=== PATIENT | male | born 1965 | race Hispanic/Latino ===

== ENCOUNTER 2022-07-30 17:02 | Emergency (ER) | payer OTHER ==
[~2022-07-30] VITALS: Ht 175.3 cm; Wt 108.9 kg
[2022-07-30 17:54] LABS: APPEARANCE,URINE CLEAR (CLEAR); BILIRUBIN,URINE NEGATIVE (NEGATIVE); COLOR,URINE LIGHT-YELLOW (YELLOW); GLUCOSE, URINE (UA) NEGATIVE (NEGATIVE); KETONES,URINE NEGATIVE (NEGATIVE); LEUKOCYTE ESTERASE ,URINE NEGATIVE Leu/uL (NEGATIVE); NITRATE,URINE NEGATIVE (NEGATIVE); OCCULT BLOOD,URINE SMALL (NEGATIVE); PH,URINE 5.5 (5.0-8.0); PROTEIN,URINE 100 mg/dL (NEGATIVE); UROBILINOGEN,URINE 0.2 mg/dL (0.2-1.0)
[2022-07-30 17:56] LABS: BACTERIA,URINE RARE /HPF (None Seen); MUCUS,URINE RARE LPF (None Seen); SQUAMOUS EPITHELIAL CELL,UR RARE /HPF (0-2); WBC,URINE 0-1 /HPF (0-1)
[2022-07-30 18:08] LABS: BASOPHILS % (AUTO) 0.3 % (0.0-5.0); EOSINOPHILS % (AUTO) 1.2 % (0.0-8.0); HEMATOCRIT 46.4 % (42-54); LYMPHOCYTES % (AUTO) 31.5 % (21.0-51.0); MEAN CORPUSCULAR HEMOGLOBIN 29.3 pg (27.0-33.0); MEAN CORPUSCULAR HGB CONC 35.3 g/dL (32.0-36.0); MONOCYTES % (AUTO) 8.4 % (3.0-13.0); NEUTROPHILS % (AUTO) 58.2 % (40.0-77.0); PLATELET COUNT (AUTO) 226 K/uL (130-400); RED BLOOD CELL COUNT(AUTO) 5.59 MIL/uL (4.50-6.20); RED CELL DISTRIBUTION WIDTH 12.4 % (11.0-15.5); WHITE BLOOD COUNT (AUTO) 10.9 K/uL (4.8-10.8)
[2022-07-30 18:28] LABS: ALBUMIN 4.1 g/dL (3.5-5.0); CREATININE 0.9 mg/dL (0.5-1.5); POTASSIUM 3.7 mmol/L (3.5-5.1)
[2022-07-30 21:29] VITALS: BP 139/89
[2022-07-30] MEDS ORDERED: BISA-189 PO (21:46)
== END 2022-07-30 21:56 | disposition home or self-care (01) ==
LOC: EDH 17:02
DX: R10.32 Left lower quadrant pain (principal); E11.9 Type 2 diabetes mellitus without complications; E78.00 Pure hypercholesterolemia, unspecified; I10 Essential (primary) hypertension; Z79.899 Other long term (current) drug therapy
CPT/HCPCS: 36415; 74176; 80053; 81001; 85025

== ENCOUNTER 2024-09-10 21:04 | Inpatient (IN) | payer BC, OTHER ==
[~2024-09-10] VITALS: Ht 177.8 cm; Wt 102.1 kg
[~2024-09-10 21:04] MED LIST: BISA-189 PO
--- NOTE | 2024-09-10 21:25 | ERN ---
General Chief Complaint: Blood in Urine: Stated Complaint: C/O BLOOD IN URINE, LOWER BACK PAIN, WEAKNESS Time Seen by : 21:09 History of Present Illness Initial Comments Patient comes in for evaluation. He is a truck dock material mover. Patient reports she has chronic hematuria but started having some low back pain and dysuria and nausea starting last night. He does have diabetes. He is on a simvastatin as well as Ozempic for the last year and metformin. Denies any kidney disease. On five this morning started feeling feverish and weak and called the ambulance. They took him to a hospital about 3 hours away. He was diagnosed with urinary tract infection and cystitis. They recommended admission however he was more than 3 hours from home. His came and got him. He left there around 10:00 a.m.. He was given 500 mg of Levaquin as well as 1 g Rocephin prior to discharge. This is around 6:00 a.m.. He was also discharged with a prescription for Augmentin, Flagyl, Levaquin. He took all three of these this evening around 5:00 p.m. along with a dose of Tylenol. He started having fevers and feeling weak again tonight which is why he presents. They did do a cardiac workup with cardiac enzymes as well as chest x-ray and COVID flu RSV swabs which she believes are negative. He is not sure of the actual results of the test but states that he was told that he had a UTI and cystitis. His discharge paperwork as here and lists the test performed although results are not available. Allergies: Coded Allergies: No Known Allergies (Unverified Allergy, Unknown, 09/10/24) Home Meds Active Scripts Bisacodyl (Dulcolax 5Mg Tab) 5 Mg Tablet., 5 MG PO BID for 2 Days, #4 TAB Prov:LILI PAK MD 07/30/22 Past Medical History Past Medical History: Diabetes-Type II, High Cholesterol, Hypertension Past Surgical History: None ROS Dictation Ten systems reviewed and negative except as noted in HPI Physical Exam Physical Exam Dictation GEN: non toxic, NAD HEENT: atrumatic, PERRL, EOMI, conjunctivae normal NECK: Soft supple nontender Heart RRR, no murmurs Chest: No deformity Lungs: Lungs clear to auscultation Ab: Soft nondistended nontender Back: No midline step-offs. No gross deformity. No CVA tenderness. : m/s: Moving all four extremities. No gross deformity Neuro: CN 2-12 intact. Moving all four extremities. Psych: Cooperative IVF Sepsis Management IVF Sepsis Management BMI >30kg/m2?: Yes Results Laboratory and Microbiology Lab and Micro Result Laboratory Tests Test 09/10/24 21:27 09/10/24 21:42 White Blood Count 22.7 K/uL (4.8-10.8) H Red Blood Count 4.99 MIL/uL (4.50-6.20) Hemoglobin 14.8 g/dL (14.0-18.0) Hematocrit 43.1 % (42-54) Mean Corpuscular Volume 86.4 fL (79-99) Mean Corpuscular Hemoglobin 29.7 pg (27.0-33.0) Mean Corpuscular Hemoglobin Concent 34.3 g/dL (32.0-36.0) Red Cell Distribution Width 12.7 % (11.0-15.5) Platelet Count 209 K/uL (130-400) Mean Platelet Volume 9.5 fL (7.5-10.5) Immature Granulocyte % (Auto) 0.8 % (0-1) Neutrophils (%) (Auto) 81.3 % (40.0-77.0) H Lymphocytes (%) (Auto) 9.6 % (21.0-51.0) L Monocytes (%) (Auto) 8.1 % (3.0-13.0) Eosinophils (%) (Auto) 0.0 % (0.0-8.0) Basophils (%) (Auto) 0.2 % (0.0-5.0) Neutrophils # (Auto) 18.5 K/uL (1.8-7.7) H Lymphocytes # (Auto) 2.2 K/uL (1.0-4.8) Monocytes # (Auto) 1.8 K/uL (0.1-1.0) H Eosinophils # (Auto) 0.01 K/uL (0.00-0.70) Basophils # (Auto) 0.04 K/uL (0.00-0.20) Absolute Immature Granulocyte (auto 0.18 K/uL (0-1) Nucleated Red Blood Cells 0.0 % (0.0-0.19) White Cell Morphology Comment See comments Sodium Level 136 mmol/L (136-145) Potassium Level 3.9 mmol/L (3.5-5.1) Chloride Level 102 mmol/L (101-111) Carbon Dioxide Level 25 mmol/L (21-32) Blood Urea Nitrogen 15 mg/dL (7-18) Creatinine 1.2 mg/dL (0.5-1.3) Glomerular Filtration Rate Calc 71 mL/min (>90) Random Glucose 143 mg/dL (70-105) H Lactic Acid Level 1.5 mmol/L (0.8-2.5) Total Calcium 8.6 mg/dL (8.5-10.1) Total Bilirubin 0.8 mg/dL (0.2-1.0) Aspartate Amino Transf (AST/SGOT) 13 U/L (10-37) Alanine Aminotransferase (ALT/SGPT) 33 U/L (12-78) Alkaline Phosphatase 68 U/L (50-136) Troponin I High Sensitivity 6 ng/L (4-75) Total Protein 7.4 g/dL (6.0-8.3) Albumin 3.5 g/dL (3.5-5.0) Procalcitonin 0.16 ng/mL (0.05-0.5) Urine Color YELLOW (YELLOW) Urine Appearance CLOUDY (CLEAR) H Urine pH 5.5 (5.0-8.0) Urine Specific [place] 1.026 (1.001-1.031) Urine Protein 100 mg/dL (NEGATIVE) H Urine Glucose (UA) 50 mg/dL (NEGATIVE) H Urine Ketones 10 mg/dL (NEGATIVE) H Urine Occult Blood MODERATE (NEGATIVE) H Urine Nitrate NEGATIVE (NEGATIVE) Urine Bilirubin NEGATIVE mg/dL (NEGATIVE) Urine Urobilinogen 0.2 mg/dL (0.2-1.0) Urine Leukocyte Esterase 500 Krystal/uL (NEGATIVE) H Urine RBC 11-25 /HPF (0-1) H Urine WBC TNTC /HPF (0-1) H Urine Squamous Epithelial Cells RARE /HPF (0-2) Urine Bacteria None /HPF (None Seen) Labs Reviewed?: Yes EKG/XRAY/US/CT/MRI EKG Comment Sinus rhythm 91 NM of 157 QRS of 95 QTC of 435 left axis deviation left anterior fascicular block. QRS complexes are narrow. STT wave complexes essentially unremarkable. Interpretation abnormal. CT Scan Comment [facility] [address] [place], [place] [id number] IMAGING REPORT Signed PATIENT: PASCALE HESS JR MR#: [id number] : 1965 SEX: M AGE: 58 LOCATION: [facility] ORDER 35 STATUS: REG ER REPORT#: [id number] SERVICE 34 REASON: ABD PAIN ORDERING PHYSICIAN: BRAYAN PACHECO MD PROCEDURE: ABD PEL W - CT ABDOMEN/PELVIS W/CONTRAST CT ABDOMEN/PELVIS W/CONTRAST HISTORY: Abdominal pain COMPARISON: None TECHNIQUE: Multiple sequential axial images of the abdomen and pelvis were obtained from the dome of the diaphragm through symphysis pubis. Patient was given 75 cc of Omnipaque through intravenous route. Oral contrast was not given. FINDINGS: No pleural effusion is seen bilaterally. There is no evidence of parenchymal disease or pulmonary nodule of the visualized lower lungs. Degenerative changes of the thoracolumbar spine are present. The heart is not enlarged. Liver measures 19 cm. Small hiatal hernia is seen. The liver, spleen, adrenal glands and pancreas are unremarkable. There is no evidence of hydronephrosis bilaterally. No evidence of renal stone is seen. Fecal material is seen in the colon. There are normal size retroperitoneal and mesenteric lymph nodes. No ascites is seen. No CT evidence of acute appendicitis is seen. Pelvic sidewalls are symmetric bilaterally. Bladder is poorly distended with apparent wall thickening. IMPRESSION: 1. No acute findings. CT was performed with one or more following dose reduction techniques: automated exposure control, adjustment of the mA and kv according to patient's size, or use of a iterative reconstruction technique. DICTATED BY: ELYSE MERCHANT MD DATE: 09/10/242299 ELECTRONICALLY SIGNED BY: ELYSE MERCHANT MD DATE: 09/10/242307 [facility] When a sounds like patient has urinary tract infection. He was given dose of Rocephin and Levaquin at outside ED this morning. He then took 750 mg of Levaquin as well as dose of Augmentin and Flagyl this evening. We will check labs here. Give fluids. Patient given sepsis fluids. Patient does have a elevated white count greater 20. Patient was given a g of Rocephin at approximately 6:00 a.m.. However given the degree of leukocytosis I am giving him another 1g here. Patient did also have two doses of Levaquin orally, with 500 mg in the morning and then 750 mg orally at home. He also had a dose of Augmentin orally. Given his degree of leukocytosis I did also perform a CT of his abdomen. No intra-abdominal abscess or perinephric abscess visualized. Patient may have some cystitis. No coronary pyelonephritis is seen. However given his labs patient will be admitted. Patient does meet sepsis criteria Lactic acid normal Discussed with hospitalist the patient is being admitted. ED Course Orders Procedure Category Date Status Time Cbc With Differential LAB 09/10/24 Complete 21:20 Comprehensive LAB 09/10/24 Complete Metabolic Panel 21:20 Lactic Acid LAB 09/10/24 Complete 21:20 Urinalysis LAB 09/10/24 Complete W/Microscopic 21:20 Procalcitonin LAB 09/10/24 Complete 21:20 Blood Cult BROOK 09/10/24 In Process 21:20 0.9%Nacl 1000ml (Ns PHA 09/10/24 In Process 1000ml) 21:30 Troponin I High LAB 09/10/24 Complete Sensitivity 21:41 12 Lead Ekg Tracing- EKG 09/10/24 Complete Technical 21:42 Culture Urine BROOK 09/10/24 In Process 21:58 Iohexol (Omnipaque) PHA 09/10/24 Complete 22:34 Ct Abdomen/Pelvis CT 09/10/24 Resulted W/Contrast 22:35 Ceftriaxone 1g Vial PHA 09/10/24 In Process (Rocephine 1g Inj) 23:30 Edm Admit Bridge Order ADM 09/10/24 Verified 23:23 Current Medications Medications (Trade) Dose Ordered Sig/Lasha Route PRN Reason Start Time Stop Time Status Last Admin Dose Admin Ceftriaxone Sodium (ROCEphine 1G INJ) 1 gm ONCE ONCE IVPB 09/10/24 23:30 09/10/24 23:31 09/10/24 23:19 Iohexol (Omnipaque) 75 ml STK-MED ONCE IV 09/10/24 22:34 09/10/24 22:34 DC Sodium Chloride 2,190 ml @ 730 mls/hr ONCE ONCE IV 09/10/24 21:30 09/11/24 00:29 09/10/24 21:48 Vital Signs Date Time Temp Pulse Resp B/P (MAP) Pulse Ox O2 Delivery O2 Flow Rate FiO2 09/10/24 21:08 99.9 96 20 124/77 97 Room Air DX & DISP Disposition: Inpatient Departure Impression: Primary Impression: UTI (urinary tract infection) Additional Impression: Sepsis Condition: Stable Referrals: CHONG TELLEZ MD (PCP) BRAYAN PACHECO MD Sep 10, 2024 21:25
[2024-09-10 21:36] LABS: BASOPHILS # (AUTO) 0.04 K/uL (0.00-0.20); BASOPHILS % (AUTO) 0.2 % (0.0-5.0); EOSINOPHILS # (AUTO) 0.01 K/uL (0.00-0.70); HEMATOCRIT 43.1 % (42-54); IMMATURE GRANULOCYTE ABSOLUTE 0.18 K/uL (0-1); LYMPHOCYTES # (AUTO) 2.2 K/uL (1.0-4.8); LYMPHOCYTES % (AUTO) 9.6 % (21.0-51.0); MEAN CORPUSCULAR HEMOGLOBIN 29.7 pg (27.0-33.0); MEAN CORPUSCULAR HGB CONC 34.3 g/dL (32.0-36.0); MEAN CORPUSCULAR VOLUME 86.4 fL (79-99); MONOCYTES # (AUTO) 1.8 K/uL (0.1-1.0); MONOCYTES % (AUTO) 8.1 % (3.0-13.0); NEUTROPHILS # (AUTO) 18.5 K/uL (1.8-7.7); NEUTROPHILS % (AUTO) 81.3 % (40.0-77.0); PLATELET COUNT (AUTO) 209 K/uL (130-400); RED BLOOD CELL COUNT(AUTO) 4.99 MIL/uL (4.50-6.20); RED CELL DISTRIBUTION WIDTH 12.7 % (11.0-15.5); WHITE BLOOD COUNT (AUTO) 22.7 K/uL (4.8-10.8)
--- NOTE | 2024-09-10 21:45 | NUR ---
PATIENT REPORTS FEVER CHILLS BACK PAIN BLOOD IN URINE ONSET TODAY. REPORTS WAS SEEN AT AN EMERGENCY DEPT IN [facility] AND WAS TO BE ADMITTED FOR UTI HEMATURIA AND CYSTITIS BUT DECIDED TO BE DISCHARGED AND BE [place]CE HE LIVES HERE
[2024-09-10] MEDS: 0.9%NACL 1000ML 2,190 ML IV ONE (21:48)
--- NOTE | 2024-09-10 21:54 | EKG ---
[facility] Test Date: 2024-09-10 Test Time: 21:49:10 Pat Name: PASCALE HESS Department: [facility] Room: 305 Gender: M Security Systems Specialist: [id number] : 1965 Requested By: BRAYAN PACHECO Order Number: [id number] Reading MD: Luis Escobar Measurements Intervals [place] Rate: 91 P: 24 MA: 157 QRS: -52 QRSD: 95 T: 32 QT: 353 QTc: 435 Interpretive Statements Sinus rhythm Probable left atrial enlargement Left anterior fascicular block No previous ECG available for comparison Electronically Signed On 09-12-2024 06:55:53 [employer]ISKEY FILTERER by Luis Escobar Please click the below link to view image of tracing.
[2024-09-10 21:55] LABS: APPEARANCE,URINE CLOUDY (CLEAR); BILIRUBIN,URINE NEGATIVE (NEGATIVE); COLOR,URINE YELLOW (YELLOW); GLUCOSE, URINE (UA) 50 mg/dL (NEGATIVE); KETONES,URINE 10 mg/dL (NEGATIVE); LEUKOCYTE ESTERASE ,URINE 500 Leu/uL (NEGATIVE); NITRATE,URINE NEGATIVE (NEGATIVE); OCCULT BLOOD,URINE MODERATE (NEGATIVE); PH,URINE 5.5 (5.0-8.0); PROTEIN,URINE 100 mg/dL (NEGATIVE); UROBILINOGEN,URINE 0.2 mg/dL (0.2-1.0)
[2024-09-10 21:58] LABS: MUCUS,URINE RARE LPF (None Seen); SQUAMOUS EPITHELIAL CELL,UR RARE /HPF (0-2); WBC,URINE TNTC /HPF (0-1)
[2024-09-10 22:02] LABS: CREATININE 1.2 mg/dL (0.5-1.3); POTASSIUM 3.9 mmol/L (3.5-5.1)
[2024-09-10 22:04] LABS: ALBUMIN 3.5 g/dL (3.5-5.0); BILIRUBIN,TOTAL 0.8 mg/dL (0.2-1.0); TOTAL PROTEIN, SERUM 7.4 g/dL (6.0-8.3)
[2024-09-10] MEDS ORDERED: IOHEXOL-350 75 ML VIAL IV ONE (22:34)
--- NOTE | 2024-09-10 23:08 | HMCIMG ---
CT ABDOMEN/PELVIS W/CONTRAST HISTORY: Abdominal pain COMPARISON: None TECHNIQUE: Multiple sequential axial images of the abdomen and pelvis were obtained from the dome of the diaphragm through symphysis pubis. Patient was given 75 cc of Omnipaque through intravenous route. Oral contrast was not given. FINDINGS: No pleural effusion is seen bilaterally. There is no evidence of parenchymal disease or pulmonary nodule of the visualized lower lungs. Degenerative changes of the thoracolumbar spine are present. The heart is not enlarged. Liver measures 19 cm. Small hiatal hernia is seen. The liver, spleen, adrenal glands and pancreas are unremarkable. There is no evidence of hydronephrosis bilaterally. No evidence of renal stone is seen. Fecal material is seen in the colon. There are normal size retroperitoneal and mesenteric lymph nodes. No ascites is seen. No CT evidence of acute appendicitis is seen. Pelvic sidewalls are symmetric bilaterally. Bladder is poorly distended with apparent wall thickening. IMPRESSION: 1. No acute findings. CT was performed with one or more following dose reduction techniques: automated exposure control, adjustment of the mA and kv according to patient's size, or use of a iterative reconstruction technique.
[2024-09-10] MEDS: cefTRIAXone 1G VIAL IVPB ONE (23:19)
--- NOTE | 2024-09-10 23:39 | HP ---
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 with past medical history of diabetes, hypertension and hyperlipidemia who presents to the ED for complaints of chills fever low back pain and burning sensation on urination.Patient states he was not feeling well for the last 2 days but he has a trip so he still decided to drive ,while along the way he felt feverish and having some chills and was instructed by his field pipe lines supervisor to pull through hooker and call 911 .Patient was taken to an ER and he was diagnosed with UTI and cystitis where he was given Levaquin 500mg and Rocephin 1 gram and was recommended for admission but since his home is 3 hours away he decided to go home instead and was discharged with a prescription of Augmentin,Flagyl and Levaquin which he took all of which today around 5pm along with Tylenol he said.Patient also reports having some nausea but no vomiting.Patient states symptoms came back so he decided to come to the ED for evaluation.Patient also reports at the ER a cardiac work up ,chest Xray ,Covid,Flu and RSV were done and he was told it was negative. Patient denies chest pain,cough,sorethroat,palpitation and shortness of breath. Vital signs temperature 99.9, heart rate 96, blood pressure 124/77 saturation 97% on room air. Labs WBC 22.7 with negative left shift of neutrophils 81, hemoglobin 14, hematocrit 43 platelet count 209. Glucose 143 troponin six procalcitonin 0.16 rest of the chemistry is normal. Urinalysis consistent with urinary tract infection. CT abdomen and pelvis result is negative. While in the ER patient received Rocephin 1 g IV and fluid resuscitation. We will admit patient for further medical management. REVIEW OF SYSTEMS CONSTITUTIONAL: Positive fever and chills Denies night sweats. No unintentional weight loss reported. NEUROLOGICAL: Denies headache, amaurosis fugax, motor weakness, sensory deficit, vertigo/spinning sensation, gait abnormalities, or tremors. ENT: No hearing loss, otalgia, otorrhea, rhinitis, rhinorrhea, hoarseness, or sore throat. CARDIOVASCULAR: Denies any exertional angina, dyspnea on exertion, orthopnea, paroxysmal nocturnal dyspnea, palpitations, life-threatening arrhythmias, claudi cation. PULMONARY: Denies any shortness of breath, cough, phlegm/sputum, hemoptysis, pleuritic chest pain. SLEEP: Denies morning headaches, daytime somnolence or napping. Denies difficulty falling asleep, staying asleep, waking from sleep. Denies knowledge of snoring. GASTROINTESTINAL: Positive nausea Denies any type of dysphagia to either liquids or solids. Denies vomiting, pyrosis, early satiety, abdominal pain, diarrhea, constipation, or changes in stool consistency or caliber. Denies coffee-ground emesis, hematemesis, hematochezia, or melanotic stools. GENITOURINARY: Complain of burning sensation on urination Denies frequency, urgency, nocturia, or incontinence (Storage/Irritative symptoms.) Low urinary stream, straining to void, urinary intermittency or hesitancy, splitting of the voiding stream, terminal dribbling. ENDOCRINOLOGIC: Denies polyuria, polydipsia, polyphagia or heat/cold intolerances. HEMATOLOGIC: Denies thrombophilia/previous clots, or coagulopathy/bleeding disorders. ONCOLOGIC: Denies personal history of malignancy. DERMATOLOGIC: Denies rashes or pruritus. PSYCHIATRIC: Denies any suicidal or homicidal ideation. Denies hallucinations. PAST MEDICAL HISTORY: [ diabetes, hypertension, hyperlipidemia ] PAST SURGICAL HISTORY: [ Patient denies] PAST SOCIAL HISTORY: [ Patient lives with . Patient admits to drinking six beer per week Patient denies cigarette and recreational drug use ] FAMILY HISTORY: [ Noncontributory ] Coded Allergies: No Known Allergies (Unverified Allergy, Unknown, 09/10/24) PHYSICAL EXAM GENERAL APPEARANCE: The patient is awake, alert, and oriented, in no acute cardiopulmonary distress. NEUROLOGICAL: Cranial nerves II-XII grossly intact. Motor is 5/5 in bilateral upper and lower extremities proximal to distal. No sensory deficits. HEENT: Face is symmetric. Pupils are equal and reactive. Extraocular movements are intact. NECK: Supple. No JVD. No thyromegaly. No submental, submandibular, pre- /postauricular, occipital or supraclavicular lymphadenopathy. CHEST: Normal chest expansion. No Telemetry. LUNGS: Absence of any rales, rhonchi or any wheezing. CARDIOVASCULAR: Regular. S1 and S2 normal. No appreciable rubs, murmurs or gallops. ABDOMEN: Soft, nontender, and nondistended. There is no rebound, voluntary guarding, or rigidity. : Deferred. No Asher. EXTREMITIES: Non-edematous and not cyanotic. No clubbing. Good capillary refill. SKIN: No skin breakdown. Vital Sign (Last 24 Hours) 09/10/24 21:08 Temp 99.9 Pulse 96 Resp 20 B/P (MAP) 124/77 Pulse Ox 97 O2 Delivery Room Air LABS: Laboratory: Test 09/10/24 21:42 09/10/24 21:27 Range/Units Urine Color YELLOW YELLOW Urine Appearance CLOUDY H CLEAR Urine pH 5.5 5.0-8.0 Urine Specific [place] 1.026 1.001-1.031 Urine Protein 100 H NEGATIVE mg/dL Urine Glucose (UA) 50 H NEGATIVE mg/dL Urine Ketones 10 H NEGATIVE mg/dL Urine Occult Blood MODERATE H NEGATIVE Urine Nitrate NEGATIVE NEGATIVE Urine Bilirubin NEGATIVE NEGATIVE mg/dL Urine Urobilinogen 0.2 0.2-1.0 mg/dL Urine Leukocyte Esterase 500 H NEGATIVE Krystal/uL Urine RBC 11-25 H 0-1 /HPF Urine WBC TNTC H 0-1 /HPF Urine Squamous Epithelial Cells RARE 0-2 /HPF Urine Bacteria None None Seen /HPF White Blood Count 22.7 H 4.8-10.8 K/uL Red Blood Count 4.99 4.50-6.20 MIL/uL Hemoglobin 14.8 14.0-18.0 g/dL Hematocrit 43.1 42-54 % Mean Corpuscular Volume 86.4 79-99 fL Mean Corpuscular Hemoglobin 29.7 27.0-33.0 pg Mean Corpuscular Hemoglobin Concent 34.3 32.0-36.0 g/dL Red Cell Distribution Width 12.7 11.0-15.5 % Platelet Count 209 130-400 K/uL Mean Platelet Volume 9.5 7.5-10.5 fL Immature Granulocyte % (Auto) 0.8 0-1 % Neutrophils (%) (Auto) 81.3 H 40.0-77.0 % Lymphocytes (%) (Auto) 9.6 L 21.0-51.0 % Monocytes (%) (Auto) 8.1 3.0-13.0 % Eosinophils (%) (Auto) 0.0 0.0-8.0 % Basophils (%) (Auto) 0.2 0.0-5.0 % Neutrophils # (Auto) 18.5 H 1.8-7.7 K/uL Lymphocytes # (Auto) 2.2 1.0-4.8 K/uL Monocytes # (Auto) 1.8 H 0.1-1.0 K/uL Eosinophils # (Auto) 0.01 0.00-0.70 K/uL Basophils # (Auto) 0.04 0.00-0.20 K/uL Absolute Immature Granulocyte (auto 0.18 0-1 K/uL Nucleated Red Blood Cells 0.0 0.0-0.19 % White Cell Morphology Comment See comments Sodium Level 136 136-145 mmol/L Potassium Level 3.9 3.5-5.1 mmol/L Chloride Level 102 101-111 mmol/L Carbon Dioxide Level 25 21-32 mmol/L Blood Urea Nitrogen 15 7-18 mg/dL Creatinine 1.2 0.5-1.3 mg/dL Glomerular Filtration Rate Calc 71 >90 mL/min Random Glucose 143 H 70-105 mg/dL Lactic Acid Level 1.5 0.8-2.5 mmol/L Total Calcium 8.6 8.5-10.1 mg/dL Total Bilirubin 0.8 0.2-1.0 mg/dL Aspartate Amino Transf (AST/SGOT) 13 10-37 U/L Alanine Aminotransferase (ALT/SGPT) 33 12-78 U/L Alkaline Phosphatase 68 50-136 U/L Troponin I High Sensitivity 6 4-75 ng/L Total Protein 7.4 6.0-8.3 g/dL Albumin 3.5 3.5-5.0 g/dL Procalcitonin 0.16 0.05-0.5 ng/mL DIAGNOSTICS / RADIOLOGY: [ ] ASSESSMENT: Sepsis due to UTI POA Acute urinary tract infection POA Severe leukocytosis POA Hypertension POA Hyperlipidemia POA Diabetes POA Morbid obesity POA Active alcohol drinker POA PLAN: We will admit patient in medical surgical We will start on consistent carb and heart healthy diet We will start NS @ 100 ml / hr and re evaluate We will start patient on Rocephin 1 g IV b.i.d. for empiric coverage We will start on Famotidine 20 mg p.o. bid for GI prophylaxis We will replace electrolytes as needed per protocol We will start on insulin sliding scale AC & HS with hypoglycemia protocol We will add prn medication for fever,pain,cough and nausea We will reconcile home meds once medlist available Monitor for signs of alcohol withdrawal and notify primary care provider We will seek Infectious Disease consultation We will request labs in am Further orders to follow depending on above results Case discussed with attending physician and came up with above treatment and plan of care. ADVANCED CARE PLANNING 1. Which of the following were discussed? Hospice Care - No Therapeutic options - Yes Advance Directives - No Other discussions - 2. Discussed with who? Patient 3. Voluntary nature of this service was explained to the patient? Yes 4. Amount of time spent - _20 5. Reviewed by Physician? (if this service was performed by NPP) Yes Patient seen and examined by me. Agree with note by CARDIAC TECHNICIAN SEE ADDITIONAL ORDERS PER CHART DISCUSSED WITH NURSING STAFF SUZY FONGP Sep 10, 2024 23:39
[2024-09-11] VITALS (11 sets, daily range): BP systolic 118–147; BP diastolic 62–88; PULSE 77–106; RESP 17–18; TEMP 98.4–100.2; O2SAT 95–98
[2024-09-11] MEDS ORDERED: ondanSETRON 4MG INJ IV PRN (01:00)
[2024-09-11] MEDS ORDERED: PoTASSium chl 10% ELIXIR 20MEQ 20 MEQ/15 ML UDCUP PO PRN (01:00)
[2024-09-11] MEDS ORDERED: GLUCAGON 1MG KIT 1 MG ML IM PRN (01:00)
[2024-09-11] MEDS ORDERED: DEXTROSE 50%-WATER 50 ML DISP.SYRIN IV PRN (01:00)
[2024-09-11] MEDS ORDERED: acetaMINOPHEN 325 MG TAB PO PRN (01:00)
[2024-09-11] MEDS ORDERED: PoTASSium chloRIDE 20MEQ/100ML 100 ML IV PRN (01:00)
[2024-09-11] MEDS: 0.9%NACL 1000ML 1,000 ML IV SCH (01:08)
[2024-09-11] MEDS ORDERED: SIMV-46 PO (01:15)
[2024-09-11] MEDS ORDERED: METF-444 PO (01:15)
[2024-09-11] MEDS ORDERED: LISI20TA24 PO (01:15)
[2024-09-11] MEDS ORDERED: AMOX1TAB16 PO (02:15)
[2024-09-11] MEDS ORDERED: METR-172 PO (02:15)
[2024-09-11] MEDS ORDERED: LEVO750T40 PO (02:15)
[2024-09-11] MEDS: acetaMINOPHEN 325 MG TAB PO PRN (04:23)
[2024-09-11] MEDS: INSULIN humuLIN R 100 UNIT/ML 3ML SQ SCH (05:43)
[2024-09-11 07:24] LABS: ALBUMIN 3.2 g/dL (3.5-5.0); BILIRUBIN,TOTAL 0.8 mg/dL (0.2-1.0); CREATININE 0.9 mg/dL (0.5-1.3); MAGNESIUM 1.4 mg/dL (1.80-2.40); POTASSIUM 3.8 mmol/L (3.5-5.1)
[2024-09-11] MEDS: cefTRIAXone 1G VIAL IVPB SCH (08:04)
[2024-09-11] MEDS: FAMOTIDINE 20MG TAB PO SCH (08:04)
[2024-09-11 08:24] LABS: BASOPHILS # (AUTO) 0.02 K/uL (0.00-0.20); BASOPHILS % (AUTO) 0.1 % (0.0-5.0); LYMPHOCYTES % (AUTO) 9.3 % (21.0-51.0); MEAN CORPUSCULAR HGB CONC 35.6 g/dL (32.0-36.0); MEAN CORPUSCULAR VOLUME 84.1 fL (79-99); MONOCYTES % (AUTO) 9.3 % (3.0-13.0); NEUTROPHILS # (AUTO) 17.3 K/uL (1.8-7.7); NEUTROPHILS % (AUTO) 80.4 % (40.0-77.0); PLATELET COUNT (AUTO) 194 K/uL (130-400); RED BLOOD CELL COUNT(AUTO) 4.64 MIL/uL (4.50-6.20); RED CELL DISTRIBUTION WIDTH 12.8 % (11.0-15.5); WHITE BLOOD COUNT (AUTO) 21.5 K/uL (4.8-10.8)
[2024-09-11] MEDS: MAGNESIUM 2GM PREMIX 50ML 50 ML IV PRN (12:10)
[2024-09-11] MEDS: PoTASSium chloRIDE 20MEQ ER 20 MEQ ERTAB PO PRN (12:11)
--- NOTE | 2024-09-11 12:49 | PN ---
[facility] PROGRESS NOTE Date of Service: Sep 11, 2024 Time of Service: 12:44 SUBJECTIVE: Patient was resting comfortably in bed. No new complaints or concerns from the patient. No acute events reported overnight. REVIEW OF SYSTEMS CONSTITUTIONAL: Positive fever and chills Denies night sweats. No unintentional weight loss reported. NEUROLOGICAL: Denies headache, amaurosis fugax, motor weakness, sensory deficit, vertigo/spinning sensation, gait abnormalities, or tremors. ENT: No hearing loss, otalgia, otorrhea, rhinitis, rhinorrhea, hoarseness, or sore throat. CARDIOVASCULAR: Denies any exertional angina, dyspnea on exertion, orthopnea, paroxysmal nocturnal dyspnea, palpitations, life-threatening arrhythmias, claudication. PULMONARY: Denies any shortness of breath, cough, phlegm/sputum, hemoptysis, pleuritic chest pain. SLEEP: Denies morning headaches, daytime somnolence or napping. Denies difficulty falling asleep, staying asleep, waking from sleep. Denies knowledge of snoring. GASTROINTESTINAL: Positive nausea Denies any type of dysphagia to either liqu ids or solids. Denies vomiting, pyrosis, early satiety, abdominal pain, diarrhea, constipation, or changes in stool consistency or caliber. Denies coffee-ground emesis, hematemesis, hematochezia, or melanotic stools. GENITOURINARY: Complain of burning sensation on urination Denies frequency, urgency, nocturia, or incontinence (Storage/Irritative symptoms.) Low urinary stream, straining to void, urinary intermittency or hesitancy, splitting of the voiding stream, terminal dribbling. ENDOCRINOLOGIC: Denies polyuria, polydipsia, polyphagia or heat/cold intolerances. HEMATOLOGIC: Denies thrombophilia/previous clots, or coagulopathy/bleeding disorders. ONCOLOGIC: Denies personal history of malignancy. DERMATOLOGIC: Denies rashes or pruritus. PSYCHIATRIC: Denies any suicidal or homicidal ideation. Denies hallucinations. PHYSICAL EXAM GENERAL APPEARANCE: The patient is awake, alert, and oriented, in no acute cardiopulmonary distress. NEUROLOGICAL: Cranial nerves II-XII grossly intact. Motor is 5/5 in bilateral upper and lower extremities proximal to distal. No sensory deficits. HEENT: Face is symmetric. Pupils are equal and reactive. Extraocular movements are intact. NECK: Supple. No JVD. No thyromegaly. No submental, submandibular, pre- /postauricular, occipital or supraclavicular lymphadenopathy. CHEST: Normal chest expansion. No Telemetry. LUNGS: Absence of any rales, rhonchi or any wheezing. CARDIOVASCULAR: Regular. S1 and S2 normal. No appreciable rubs, murmurs or gallops. ABDOMEN: Soft, nontender, and nondistended. There is no rebound, voluntary guarding, or rigidity. : Deferred. No Asher. EXTREMITIES: Non-edematous and not cyanotic. No clubbing. Good capillary refill. SKIN: No skin breakdown. Vital Signs (last 8hr) Date Time Temp Pulse Resp B/P (MAP) Pulse Ox O2 Delivery O2 Flow Rate FiO2 09/11/24 12:17 98.6 94 18 140/88 98 Room Air 09/11/24 08:36 98.4 96 17 144/82 98 Room Air 09/11/24 05:39 98.8 LABS: Laboratory: Test 09/11/24 11:16 09/11/24 06:50 09/10/24 21:42 09/10/24 21:27 Range/Units Whole Blood Glucose 119 H 70-110 MG/DL White Blood Count 21.5 H 4.8-10.8 K/uL Red Blood Count 4.64 4.50-6.20 MIL/uL Hemoglobin 13.9 L 14.0-18.0 g/dL Hematocrit 39.0 L 42-54 % Mean Corpuscular Volume 84.1 79-99 fL Mean Corpuscular Hemoglobin 30.0 27.0-33.0 pg Mean Corpuscular Hemoglobin Concent 35.6 32.0-36.0 g/dL Red Cell Distribution Width 12.8 11.0-15.5 % Platelet Count 194 130-400 K/uL Mean Platelet Volume 10.1 7.5-10.5 fL Immature Granulocyte % (Auto) 0.9 0-1 % Neutrophils (%) (Auto) 80.4 H 40.0-77.0 % Lymphocytes (%) (Auto) 9.3 L 21.0-51.0 % Monocytes (%) (Auto) 9.3 3.0-13.0 % Eosinophils (%) (Auto) 0.0 0.0-8.0 % Basophils (%) (Auto) 0.1 0.0-5.0 % Neutrophils # (Auto) 17.3 H 1.8-7.7 K/uL Lymphocytes # (Auto) 2.0 1.0-4.8 K/uL Monocytes # (Auto) 2.0 H 0.1-1.0 K/uL Eosinophils # (Auto) 0.00 0.00-0.70 K/uL Basophils # (Auto) 0.02 0.00-0.20 K/uL Absolute Immature Granulocyte (auto 0.20 0-1 K/uL Nucleated Red Blood Cells 0.0 0.0-0.19 % Sodium Level 136 136-145 mmol/L Potassium Level 3.8 3.5-5.1 mmol/L Chloride Level 104 101-111 mmol/L Carbon Dioxide Level 23 21-32 mmol/L Blood Urea Nitrogen 10 7-18 mg/dL Creatinine 0.9 0.5-1.3 mg/dL Glomerular Filtration Rate Calc 100 >90 mL/min Random Glucose 138 H 70-105 mg/dL Lactic Acid Level 1.0 0.8-2.5 mmol/L Total Calcium 8.3 L 8.5-10.1 mg/dL Magnesium Level 1.40 L 1.80-2.40 mg/dL Total Bilirubin 0.8 0.2-1.0 mg/dL Aspartate Amino Transf (AST/SGOT) 11 10-37 U/L Alanine Aminotransferase (ALT/SGPT) 27 12-78 U/L Alkaline Phosphatase 58 50-136 U/L Total Protein 7.0 6.0-8.3 g/dL Albumin 3.2 L 3.5-5.0 g/dL Procalcitonin 0.16 0.05-0.5 ng/mL Urine Color YELLOW YELLOW Urine Appearance CLOUDY H CLEAR Urine pH 5.5 5.0-8.0 Urine Specific [place] 1.026 1.001-1.031 Urine Protein 100 H NEGATIVE mg/dL Urine Glucose (UA) 50 H NEGATIVE mg/dL Urine Ketones 10 H NEGATIVE mg/dL Urine Occult Blood MODERATE H NEGATIVE Urine Nitrate NEGATIVE NEGATIVE Urine Bilirubin NEGATIVE NEGATIVE mg/dL Urine Urobilinogen 0.2 0.2-1.0 mg/dL Urine Leukocyte Esterase 500 H NEGATIVE Krystal/uL Urine RBC 11-25 H 0-1 /HPF Urine WBC TNTC H 0-1 /HPF Urine Squamous Epithelial Cells RARE 0-2 /HPF Urine Bacteria None None Seen /HPF White Cell Morphology Comment See comments Troponin I High Sensitivity 6 4-75 ng/L Current Medications Medications (Trade) Dose Ordered Sig/Lasha Route PRN Reason Start Time Stop Time Status Last Admin Dose Admin Acetaminophen (TYLenol 325MG TAB) 650 mg Q4H PRN PO MILD PAIN (1-3) 09/11/24 01:00 10/11/24 00:59 Acetaminophen (TYLenol 325MG TAB) 650 mg Q6H PRN PO TEMPERATURE GREATER THAN 101.5 09/11/24 01:00 10/11/24 00:59 09/11/24 12:14 650 MG Ceftriaxone Sodium (ROCEphine 1G INJ) 1 gm BID IVPB 09/11/24 09:00 09/21/24 08:59 09/11/24 08:04 1 GM Dextrose (D50w) 50 ml AD PRN IV HYPOGLYCEMIA PROTOCOL 09/11/24 01:00 10/11/24 00:59 Famotidine (Pepcid 20mg Tab) 20 mg BID PO 09/11/24 09:00 10/11/24 08:59 09/11/24 08:04 20 MG Glucagon (Glucagon 1mg Kit) 1 mg AD PRN IM HYPOGLYCEMIA PROTOCOL 09/11/24 01:00 10/11/24 00:59 Insulin Human Regular (humuLIN R 100 UNIT/ML 3ML) INSULIN SLIDING SCAL... ACHS SQ 09/11/24 07:30 10/11/24 07:29 Magnesium Sulfate 50 ml @ 0 mls/hr PROTOCOL PRN IV OTHER [SEE ORDER COMMENTS] 09/11/24 01:00 10/11/24 00:59 09/11/24 12:10 25 MLS/HR Ondansetron HCl (zoFRAN 4MG INJ) 4 mg Q6H PRN IV NAUSEA/VOMITING 09/11/24 01:00 10/11/24 00:59 Potassium Chloride 100 ml @ 100 mls/hr AD PRN IV POTASSIUM PROTOCOL 09/11/24 01:00 10/11/24 00:59 Potassium Chloride (K-Dur/Klor-Con 20meq) 20 meq AD PRN PO POTASSIUM PROTOCOL 09/11/24 01:00 10/11/24 00:59 09/11/24 12:11 20 MEQ Potassium Chloride (KCl 10% Elixir 20meq/15ml) 20 meq AD PRN PO POTASSIUM PROTOCOL 09/11/24 01:00 10/11/24 00:59 Sodium Chloride 1,000 ml @ 100 mls/hr Q10H IV 09/11/24 01:00 10/11/24 00:59 09/11/24 12:22 100 MLS/HR DIAGNOSTICS / RADIOLOGY: [ ] ASSESSMENT: Sepsis due to UTI POA Acute urinary tract infection POA Severe leukocytosis POA Hypertension POA Hyperlipidemia POA Diabetes POA Morbid obesity POA Active alcohol drinker POA Mild protein calorie malnutrition, POA PLAN: We will admit patient in medical surgical Continue Rocephin 1 g IV b.i.d. for empiric coverage Follow up Infectious Disease Monitor for signs of alcohol withdrawal and notify primary Continue Famotidine 20 mg p.o. bid for GI prophylaxiscare provider Continue on consistent carb and heart healthy diet Discontinue NS @ 100 ml / hr and re evaluate replace electrolytes as needed per protocol Trend a.m. BMP Continue insulin sliding scale AC & HS with hypoglycemia protocol Trend a.m. CBC DVT prophylaxis with the SCDs only for now Full code Case discussed with patient and nurse at bedside Attention time greater than 30 minutes ARLEN WALTERS IV, MD Sep 11, 2024 12:49
[2024-09-11] MEDS: ZOSYN 3.375GM +NS 50ML IV SCH (14:55)
[2024-09-11] MEDS ORDERED: MAGNESIUM 4GM PREMIX 100ML IV SCH (15:00)
[2024-09-11] MEDS: MAGNESIUM 4GM PREMIX 100ML IV ONE (15:46)
--- NOTE | 2024-09-11 23:10 | CONS ---
INFECTIOUS DISEASE CONSULTATION DATE OF SERVICE: 09/11/2024 REQUESTING PHYSICIAN: Funmi Velázquez NP. REASON FOR CONSULTATION: Sepsis and antibiotic management. HISTORY OF PRESENT ILLNESS: This is a 58-year-old male with obesity, hypertension, diabetes mellitus, who presented to hospital with fever, chills and urinary symptoms. 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 The patient went to the Emergency Room in [place], [place] where he was given ceftriaxone and given a prescription for Augmentin. The patient continued on antibiotic, but due to worsening of symptoms, he decided to come to the Emergency Room. T-max today 100.2. Urinalysis is positive with WBC too numerous to count, leukocyte 500. The patient's WBC on admission was 22,000. No cough, no hemoptysis or pleuritic pain. No sick contact or recent travel. PAST MEDICAL HISTORY: * Diabetes mellitus. * Hypertension. * Dyslipidemia. * Obesity. * Urinary tract infection. PAST SURGICAL HISTORY: None. ALLERGIES: No known drug allergy. CURRENT MEDICATIONS: * Ceftriaxone. * Tylenol. * Insulin. * Zofran. SOCIAL HISTORY: Lives with . No alcohol, tobacco or illicit drug use. FAMILY HISTORY: Positive for diabetes mellitus. REVIEW OF SYSTEMS: Greater than 10 systems were reviewed, negatives as documented above. PHYSICAL EXAMINATION: GENERAL: Middle-aged male, awake, ill looking. VITAL SIGNS: Temperature 100.2, pulse 94, respiratory rate 18, BP 140/80. EYES: No icterus. Pupils equal and reactive. HENT: No oral thrush seen. Moist oral mucosa. NECK: Supple, no JVD or thyromegaly. LUNGS: Good air entry. No rales, no rhonchi. CARDIOVASCULAR: S1, S2 regular. No murmur heard. ABDOMEN: Full, soft, nontender. Bowel sound is present. Obese. No grimace. CENTRAL NERVOUS SYSTEM: Awake, alert, oriented x 3. No focal deficits. HEMATOLOGIC: No bleeding or petechial lesion seen. MUSCULOSKELETAL: No joint swelling, erythema or tenderness. SKIN: No rashes, no itchiness. LYMPHATICS: No peripheral lymphadenopathy. BACK: No deformity, no pressure ulcer. VASCULAR: No ischemia or gangrene of extremities. LABORATORY DATA: Sodium 136, potassium 3.8, BUN 10, creatinine 0.9. WBC 21.5, hemoglobin 13.9, platelet 194. Urinalysis: Leukocyte esterase 500, WBC too numerous to count. RADIOLOGY: CT of the abdomen unremarkable. ASSESSMENT: A 58-year-old male presenting with fever, urinary symptoms. CURRENT PROBLEMS: * Possible gram-negative sepsis. * Urinary tract infection. * Diabetes mellitus. * Leukocytosis. * Obesity. PLAN: * Discontinue ceftriaxone. * Start the patient on Zosyn. * Follow up cultures. * Continue pain management. * Continue antidiabetic. * Continue antihypertensive. * Continue nutritional support. * The patient will be followed up closely. Thank you for allowing me to participate in the care of this patient. TID: [id number] RECEIPT: [id number]
[2024-09-12] VITALS (7 sets, daily range): BP systolic 123–138; BP diastolic 72–96; PULSE 69–83; RESP 18–19; TEMP 98–98.5; O2SAT 95–99
[2024-09-12] MEDS: LISINOPRIL 20 MG TABLET PO SCH (09:11)
[2024-09-12 14:34] LABS: INR <= 0.93 (0.85-1.15); PROTHROMBIN TIME 10.3 SEC (9.6-11.6)
--- NOTE | 2024-09-12 14:37 | PN ---
[facility] PROGRESS NOTE Date of Service: Sep 12, 2024 Time of Service: 14:36 SUBJECTIVE: T-max was 99.0 no new complaints or concerns. No acute events reported overnight. Patient remains on IV antibiotics REVIEW OF SYSTEMS CONSTITUTIONAL: Positive fever and chills Denies night sweats. No unintentional weight loss reported. NEUROLOGICAL: Denies headache, amaurosis fugax, motor weakness, sensory deficit, vertigo/spinning sensation, gait abnormalities, or tremors. ENT: No hearing loss, otalgia, otorrhea, rhinitis, rhinorrhea, hoarseness, or sore throat. CARDIOVASCULAR: Denies any exertional angina, dyspnea on exertion, orthopnea, paroxysmal nocturnal dyspnea, palpitations, life-threatening arrhythmias, claudication. PULMONARY: Denies any shortness of breath, cough, phlegm/sputum, hemoptysis, pleuritic chest pain. SLEEP: Denies morning headaches, daytime somnolence or napping. Denies difficulty falling asleep, staying asleep, waking from sleep. Denies knowledge of snoring. GASTROINTESTINAL: Positive nausea Denies any type of dysphagia to either liquids or solids. Denies vomiting, pyrosis, early satiety, abdominal pain, diarrhea, constipation, or changes in stool consistency or caliber. Denies coffee-ground emesis, hematemesis, hematochezia, or melanotic stools. GENITOURINARY: Complain of burning sensation on urination Denies frequency, urgency, nocturia, or incontinence (Storage/Irritative symptoms.) Low urinary s tream, straining to void, urinary intermittency or hesitancy, splitting of the voiding stream, terminal dribbling. ENDOCRINOLOGIC: Denies polyuria, polydipsia, polyphagia or heat/cold intolerances. HEMATOLOGIC: Denies thrombophilia/previous clots, or coagulopathy/bleeding disorders. ONCOLOGIC: Denies personal history of malignancy. DERMATOLOGIC: Denies rashes or pruritus. PSYCHIATRIC: Denies any suicidal or homicidal ideation. Denies hallucinations. PHYSICAL EXAM GENERAL APPEARANCE: The patient is awake, alert, and oriented, in no acute cardiopulmonary distress. NEUROLOGICAL: Cranial nerves II-XII grossly intact. Motor is 5/5 in bilateral upper and lower extremities proximal to distal. No sensory deficits. HEENT: Face is symmetric. Pupils are equal and reactive. Extraocular movements are intact. NECK: Supple. No JVD. No thyromegaly. No submental, submandibular, pre- /postauricular, occipital or supraclavicular lymphadenopathy. CHEST: Normal chest expansion. No Telemetry. LUNGS: Absence of any rales, rhonchi or any wheezing. CARDIOVASCULAR: Regular. S1 and S2 normal. No appreciable rubs, murmurs or gallops. ABDOMEN: Soft, nontender, and nondistended. There is no rebound, voluntary guarding, or rigidity. : Deferred. No Asher. EXTREMITIES: Non-edematous and not cyanotic. No clubbing. Good capillary refill. SKIN: No skin breakdown. Vital Signs (last 8hr) Date Time Temp Pulse Resp B/P (MAP) Pulse Ox O2 Delivery O2 Flow Rate FiO2 09/12/24 12:00 98.1 69 18 123/83 99 Room Air 09/12/24 09:11 98.4 73 18 128/94 94 Room Air 09/12/24 08:00 99 Room Air* 0 21 LABS: Laboratory: Test 09/12/24 14:11 09/12/24 11:31 09/11/24 06:50 09/10/24 21:42 Range/Units Prothrombin Time 10.3 9.6-11.6 SEC Prothromb Time International Ratio <= 0.93 0.85-1.15 Whole Blood Glucose 149 H 70-110 MG/DL White Blood Count 21.5 H 4.8-10.8 K/uL Red Blood Count 4.64 4.50-6.20 MIL/uL Hemoglobin 13.9 L 14.0-18.0 g/dL Hematocrit 39.0 L 42-54 % Mean Corpuscular Volume 84.1 79-99 fL Mean Corpuscular Hemoglobin 30.0 27.0-33.0 pg Mean Corpuscular Hemoglobin Concent 35.6 32.0-36.0 g/dL Red Cell Distribution Width 12.8 11.0-15.5 % Platelet Count 194 130-400 K/uL Mean Platelet Volume 10.1 7.5-10.5 fL Immature Granulocyte % (Auto) 0.9 0-1 % Neutrophils (%) (Auto) 80.4 H 40.0-77.0 % Lymphocytes (%) (Auto) 9.3 L 21.0-51.0 % Monocytes (%) (Auto) 9.3 3.0-13.0 % Eosinophils (%) (Auto) 0.0 0.0-8.0 % Basophils (%) (Auto) 0.1 0.0-5.0 % Neutrophils # (Auto) 17.3 H 1.8-7.7 K/uL Lymphocytes # (Auto) 2.0 1.0-4.8 K/uL Monocytes # (Auto) 2.0 H 0.1-1.0 K/uL Eosinophils # (Auto) 0.00 0.00-0.70 K/uL Basophils # (Auto) 0.02 0.00-0.20 K/uL Absolute Immature Granulocyte (auto 0.20 0-1 K/uL Nucleated Red Blood Cells 0.0 0.0-0.19 % Sodium Level 136 136-145 mmol/L Potassium Level 3.8 3.5-5.1 mmol/L Chloride Level 104 101-111 mmol/L Carbon Dioxide Level 23 21-32 mmol/L Blood Urea Nitrogen 10 7-18 mg/dL Creatinine 0.9 0.5-1.3 mg/dL Glomerular Filtration Rate Calc 100 >90 mL/min Random Glucose 138 H 70-105 mg/dL Lactic Acid Level 1.0 0.8-2.5 mmol/L Total Calcium 8.3 L 8.5-10.1 mg/dL Magnesium Level 1.40 L 1.80-2.40 mg/dL Total Bilirubin 0.8 0.2-1.0 mg/dL Aspartate Amino Transf (AST/SGOT) 11 10-37 U/L Alanine Aminotransferase (ALT/SGPT) 27 12-78 U/L Alkaline Phosphatase 58 50-136 U/L Total Protein 7.0 6.0-8.3 g/dL Albumin 3.2 L 3.5-5.0 g/dL Procalcitonin 0.16 0.05-0.5 ng/mL Urine Color YELLOW YELLOW Urine Appearance CLOUDY H CLEAR Urine pH 5.5 5.0-8.0 Urine Specific [place] 1.026 1.001-1.031 Urine Protein 100 H NEGATIVE mg/dL Urine Glucose (UA) 50 H NEGATIVE mg/dL Urine Ketones 10 H NEGATIVE mg/dL Urine Occult Blood MODERATE H NEGATIVE Urine Nitrate NEGATIVE NEGATIVE Urine Bilirubin NEGATIVE NEGATIVE mg/dL Urine Urobilinogen 0.2 0.2-1.0 mg/dL Urine Leukocyte Esterase 500 H NEGATIVE Krystal/uL Urine RBC 11-25 H 0-1 /HPF Urine WBC TNTC H 0-1 /HPF Urine Squamous Epithelial Cells RARE 0-2 /HPF Urine Bacteria None None Seen /HPF Test 09/10/24 21:27 Range/Units White Cell Morphology Comment See comments Troponin I High Sensitivity 6 4-75 ng/L Current Medications Medications (Trade) Dose Ordered Sig/Lasha Route PRN Reason Start Time Stop Time Status Last Admin Dose Admin Acetaminophen (TYLenol 325MG TAB) 650 mg Q4H PRN PO MILD PAIN (1-3) 09/11/24 01:00 10/11/24 00:59 Acetaminophen (TYLenol 325MG TAB) 650 mg Q6H PRN PO TEMPERATURE GREATER THAN 101.5 09/11/24 01:00 10/11/24 00:59 09/11/24 12:14 650 MG Ceftriaxone Sodium (ROCEphine 1G INJ) 1 gm BID IVPB 09/11/24 09:00 09/11/24 13:33 DC 09/11/24 08:04 1 GM Dextrose (D50w) 50 ml AD PRN IV HYPOGLYCEMIA PROTOCOL 09/11/24 01:00 10/11/24 00:59 Famotidine (Pepcid 20mg Tab) 20 mg BID PO 09/11/24 09:00 10/11/24 08:59 09/12/24 09:10 20 MG Glucagon (Glucagon 1mg Kit) 1 mg AD PRN IM HYPOGLYCEMIA PROTOCOL 09/11/24 01:00 10/11/24 00:59 Insulin Human Regular (humuLIN R 100 UNIT/ML 3ML) INSULIN SLIDING SCAL... ACHS SQ 09/11/24 07:30 10/11/24 07:29 Lisinopril (Prinivil 20mg) 20 mg DAILY PO 09/12/24 09:00 10/12/24 08:59 09/12/24 09:11 20 MG Magnesium Sulfate 50 ml @ 0 mls/hr PROTOCOL PRN IV OTHER [SEE ORDER COMMENTS] 09/11/24 01:00 10/11/24 00:59 09/11/24 12:10 25 MLS/HR Magnesium Sulfate (Magnesium 4gm Premix 100ml) 4 gm ONCE IV 09/11/24 15:00 09/11/24 13:33 DC Ondansetron HCl (zoFRAN 4MG INJ) 4 mg Q6H PRN IV NAUSEA/VOMITING 09/11/24 01:00 10/11/24 00:59 Piperacillin Sod/ Tazobactam Sod (Zosyn 3.375gm+NS 50ml) 3.375 gm Q8H IV 09/11/24 14:00 09/21/24 13:59 09/12/24 14:05 3.375 GM Potassium Chloride 100 ml @ 100 mls/hr AD PRN IV POTASSIUM PROTOCOL 09/11/24 01:00 10/11/24 00:59 Potassium Chloride (K-Dur/Klor-Con 20meq) 20 meq AD PRN PO POTASSIUM PROTOCOL 09/11/24 01:00 10/11/24 00:59 09/11/24 17:04 20 MEQ Potassium Chloride (KCl 10% Elixir 20meq/15ml) 20 meq AD PRN PO POTASSIUM PROTOCOL 09/11/24 01:00 10/11/24 00:59 Simvastatin (zoCOR) 40 mg HS PO 09/12/24 21:00 10/12/24 20:59 Sodium Chloride 1,000 ml @ 100 mls/hr Q10H IV 09/11/24 01:00 09/11/24 12:48 DC 09/11/24 12:22 100 MLS/HR DIAGNOSTICS / RADIOLOGY: [ ] ASSESSMENT: Sepsis due to UTI POA Acute urinary tract infection POA Severe leukocytosis POA Hypertension POA Hyperlipidemia POA Diabetes POA Morbid obesity POA Active alcohol drinker POA Mild protein calorie malnutrition, POA PLAN: We will admit patient in medical surgical Continue Rocephin 1 g IV b.i.d. for empiric coverage Follow up Infectious Disease Monitor for signs of alcohol withdrawal and notify primary Continue Famotidine 20 mg p.o. bid for GI prophylaxiscare provider Continue on consistent carb and heart healthy diet Discontinue NS @ 100 ml / hr and re evaluate replace electrolytes as needed per protocol Trend a.m. BMP Continue insulin sliding scale AC & HS with hypoglycemia protocol Trend a.m. CBC DVT prophylaxis with the SCDs only for now Full code Case discussed with patient and nurse at bedside Attention time greater than 30 minutes ARLEN WALTERS IV, MD Sep 12, 2024 14:37
--- NOTE | 2024-09-12 14:43 | NUR ---
Discharge Planning: Pt. states he lives with his spouse Cassie. Contact number is . PCP is Dr. Mitch Dior in [place], and preferred pharmacy is [facility] in [place]. Pt. is employed, independent with all ADL's. No home health, provider services, or DME. DCP is for home. No d/c needs at this time. Addendum: 09/12/24 at 1447 by MOUSTAPHA FORD RN CM Amended: Links added.
--- NOTE | 2024-09-12 14:46 | PN ---
INFECTIOUS DISEASE PROGRESS NOTE Date of Service: Sep 12, 2024 SUBJECTIVE: This is a 58-year-old male patient who was recently diagnosed with urinary tract infection who presented to the hospital with urinary symptoms, dysuria and frequency. Patient reported having fever and chills and lower back pain. The WBC on admission was 22.7 and patient had a f low-grade fever of 99.9. A urinalysis was positive. Records from recent hospital visit in [place], [place] requested and reviewed. No urine culture result was included in the records. Patient was seen and examined at bedside in room 305. Patient's antibiotic was changed to Zosyn yesterday. Patient reported improvement on the frequency and dysuria. Has remained afebrile for the past [address] midline for two weeks of outpatient IV antibiotics. We will follow up on the urine culture results. No reports of nausea or vomiting. We will obtain lab work in a.m. REVIEW OF SYSTEMS CONSTITUTIONAL: Positive for fever, chills. HEAD/FACE: No signs of trauma. EENT: Denies eye pain, blurred vision, double vision, or light sensitivity. RESPIRATORY: Denies shortness of breath, cough, wheezing CARDIOVASCULAR: Denies chest pain, palpitation, syncope. GASTROINTESTINAL/ABDOMINAL: Denies abdominal pain, constipation, diarrhea, nausea or vomiting. GENITOURINARY: Reported dysuria and frequency. MUSCULOSKELETAL: Denies joint pain, tenderness, or trauma. INTEGUMENTARY: Denies rash or itchiness. NEUROLOGICAL/PSYCH: Denies anxiety, depression, heat or cold intolerance. PHYSICAL EXAM EYES: Anicteric. Pupils equal and reactive. HENT: No oral thrush seen, moist Oral mucosa NECK: Supple, no JVD or thyromegaly. LUNGS: Good air entry. No rales, no rhonchi. CARDIOVASCULAR: S1, S2 regular. No murmur heard. ABDOMEN: Soft, non tender, bowel sounds present, no organomegaly CENTRAL NERVOUS SYSTEM: Awake, alert, oriented x 3. No focal deficits. SKIN: No rashes, no swelling. LYMPHATICS: No peripheral lymphadenopathy MUSCULOSKELETAL: No joint swelling, erythema or tenderness. EXTREMITIES: No cyanosis or clubbing BACK: No deformity, no pressure ulcer. GENITOURINARY: No dysuria or hematuria Vital Sign (Last 12 Hours) 09/12/24 09/12/24 09/12/24 09/12/24 03:43 08:00 09:11 12:00 Temp 98.4 98.4 98.1 Pulse 83 73 69 Resp 19 18 18 B/P (MAP) 124/72 128/94 123/83 Pulse Ox 97 99 94 99 O2 Delivery Room Air Room Air* Room Air Room Air O2 Flow Rate 0 FiO2 21 Intake & Output (last 24hrs) 09/11/24 09/11/24 09/12/24 15:00 23:00 07:00 Intake Total 1800 ml Output Total 500 ml 500 ml Balance 1300 ml -500 ml LABS: Laboratory: Test 09/12/24 11:31 09/11/24 06:50 09/10/24 21:42 09/10/24 21:27 Range/Units Whole Blood Glucose 149 H 70-110 MG/DL White Blood Count 21.5 H 4.8-10.8 K/uL Red Blood Count 4.64 4.50-6.20 MIL/uL Hemoglobin 13.9 L 14.0-18.0 g/dL Hematocrit 39.0 L 42-54 % Mean Corpuscular Volume 84.1 79-99 fL Mean Corpuscular Hemoglobin 30.0 27.0-33.0 pg Mean Corpuscular Hemoglobin Concent 35.6 32.0-36.0 g/dL Red Cell Distribution Width 12.8 11.0-15.5 % Platelet Count 194 130-400 K/uL Mean Platelet Volume 10.1 7.5-10.5 fL Immature Granulocyte % (Auto) 0.9 0-1 % Neutrophils (%) (Auto) 80.4 H 40.0-77.0 % Lymphocytes (%) (Auto) 9.3 L 21.0-51.0 % Monocytes (%) (Auto) 9.3 3.0-13.0 % Eosinophils (%) (Auto) 0.0 0.0-8.0 % Basophils (%) (Auto) 0.1 0.0-5.0 % Neutrophils # (Auto) 17.3 H 1.8-7.7 K/uL Lymphocytes # (Auto) 2.0 1.0-4.8 K/uL Monocytes # (Auto) 2.0 H 0.1-1.0 K/uL Eosinophils # (Auto) 0.00 0.00-0.70 K/uL Basophils # (Auto) 0.02 0.00-0.20 K/uL Absolute Immature Granulocyte (auto 0.20 0-1 K/uL Nucleated Red Blood Cells 0.0 0.0-0.19 % Sodium Level 136 136-145 mmol/L Potassium Level 3.8 3.5-5.1 mmol/L Chloride Level 104 101-111 mmol/L Carbon Dioxide Level 23 21-32 mmol/L Blood Urea Nitrogen 10 7-18 mg/dL Creatinine 0.9 0.5-1.3 mg/dL Glomerular Filtration Rate Calc 100 >90 mL/min Random Glucose 138 H 70-105 mg/dL Lactic Acid Level 1.0 0.8-2.5 mmol/L Total Calcium 8.3 L 8.5-10.1 mg/dL Magnesium Level 1.40 L 1.80-2.40 mg/dL Total Bilirubin 0.8 0.2-1.0 mg/dL Aspartate Amino Transf (AST/SGOT) 11 10-37 U/L Alanine Aminotransferase (ALT/SGPT) 27 12-78 U/L Alkaline Phosphatase 58 50-136 U/L Total Protein 7.0 6.0-8.3 g/dL Albumin 3.2 L 3.5-5.0 g/dL Procalcitonin 0.16 0.05-0.5 ng/mL Urine Color YELLOW YELLOW Urine Appearance CLOUDY H CLEAR Urine pH 5.5 5.0-8.0 Urine Specific [place] 1.026 1.001-1.031 Urine Protein 100 H NEGATIVE mg/dL Urine Glucose (UA) 50 H NEGATIVE mg/dL Urine Ketones 10 H NEGATIVE mg/dL Urine Occult Blood MODERATE H NEGATIVE Urine Nitrate NEGATIVE NEGATIVE Urine Bilirubin NEGATIVE NEGATIVE mg/dL Urine Urobilinogen 0.2 0.2-1.0 mg/dL Urine Leukocyte Esterase 500 H NEGATIVE Krystal/uL Urine RBC 11-25 H 0-1 /HPF Urine WBC TNTC H 0-1 /HPF Urine Squamous Epithelial Cells RARE 0-2 /HPF Urine Bacteria None None Seen /HPF White Cell Morphology Comment See comments Troponin I High Sensitivity 6 4-75 ng/L ASSESSMENT: Urinary tract infection. Leukocytosis. Diabetes mellitus. PLAN: Continue Zosyn IV. We will follow up on the final urine culture results. Place midline. Patient will need outpatient IV antibiotics for two weeks. Continue pain management. Continue monitoring glucose levels. This case was reviewed and discussed with my supervising physician and the above assessment and plan was formulated and agreed upon. ATTESTATION BY PHYSICIAN I have seen and examined the patient. I reviewed the documentation, medical decision making, and treatment plan as noted by the mid-level provider above. I agree with the findings and plan of care. CESAR MOSQUERA MD, MIRTA L [facility] Sep 12, 2024 14:46
[2024-09-12 15:09] LABS: HEMATOCRIT 43.4 % (42-54); MEAN CORPUSCULAR HEMOGLOBIN 29.6 pg (27.0-33.0); MEAN CORPUSCULAR VOLUME 84.6 fL (79-99); RED BLOOD CELL COUNT(AUTO) 5.13 MIL/uL (4.50-6.20); RED CELL DISTRIBUTION WIDTH 12.5 % (11.0-15.5)
[2024-09-12 15:17] LABS: MAGNESIUM 2.1 mg/dL (1.80-2.40); POTASSIUM 3.8 mmol/L (3.5-5.1)
[2024-09-12] MEDS: simVASTatin 20 MG TABLET PO SCH (19:48)
[2024-09-13] VITALS (9 sets, daily range): BP systolic 98–148; BP diastolic 53–98; PULSE 61–75; RESP 17–19; TEMP 97.6–98.4; O2SAT 97–98
[2024-09-13 04:43] LABS: HEMATOCRIT 44.9 % (42-54); MEAN CORPUSCULAR HEMOGLOBIN 29.5 pg (27.0-33.0); MEAN CORPUSCULAR HGB CONC 34.5 g/dL (32.0-36.0); MEAN CORPUSCULAR VOLUME 85.5 fL (79-99); RED BLOOD CELL COUNT(AUTO) 5.25 MIL/uL (4.50-6.20); RED CELL DISTRIBUTION WIDTH 12.4 % (11.0-15.5); WHITE BLOOD COUNT (AUTO) 9.5 K/uL (4.8-10.8)
[2024-09-13 04:59] LABS: ALBUMIN 3.1 g/dL (3.5-5.0); BILIRUBIN,TOTAL 0.5 mg/dL (0.2-1.0); CREATININE 0.9 mg/dL (0.5-1.3); TOTAL PROTEIN, SERUM 7.6 g/dL (6.0-8.3)
--- NOTE | 2024-09-13 14:01 | PN ---
[facility] PROGRESS NOTE Date of Service: Sep 13, 2024 Time of Service: 13:59 SUBJECTIVE: T-max was 99.0 no new complaints or concerns. No acute events reported overnight. Patient remains on IV antibiotics REVIEW OF SYSTEMS CONSTITUTIONAL: Positive fever and chills Denies night sweats. No unintentional weight loss reported. NEUROLOGICAL: Denies headache, amaurosis fugax, motor weakness, sensory deficit, vertigo/spinning sensation, gait abnormalities, or tremors. ENT: No hearing loss, otalgia, otorrhea, rhinitis, rhinorrhea, hoarseness, or sore throat. CARDIOVASCULAR: Denies any exertional angina, dyspnea on exertion, orthopnea, paroxysmal nocturnal dyspnea, palpitations, life-threatening arrhythmias, claudication. PULMONARY: Denies any shortness of breath, cough, phlegm/sputum, hemoptysis, pleuritic chest pain. SLEEP: Denies morning headaches, daytime somnolence or napping. Denies difficulty falling asleep, staying asleep, waking from sleep. Denies knowledge of snoring. GASTROINTESTINAL: Positive nausea Denies any type of dysphagia to either liquids or solids. Denies vomiting, pyrosis, early satiety, abdominal pain, diarrhea, constipation, or changes in stool consistency or caliber. Denies coffee-ground emesis, hematemesis, hematochezia, or melanotic stools. GENITOURINARY: Complain of burning sensation on urination Denies frequency, urgency, nocturia, or incontinence (Storage/Irritative symptoms.) Low urinary s tream, straining to void, urinary intermittency or hesitancy, splitting of the voiding stream, terminal dribbling. ENDOCRINOLOGIC: Denies polyuria, polydipsia, polyphagia or heat/cold intolerances. HEMATOLOGIC: Denies thrombophilia/previous clots, or coagulopathy/bleeding disorders. ONCOLOGIC: Denies personal history of malignancy. DERMATOLOGIC: Denies rashes or pruritus. PSYCHIATRIC: Denies any suicidal or homicidal ideation. Denies hallucinations. PHYSICAL EXAM GENERAL APPEARANCE: The patient is awake, alert, and oriented, in no acute cardiopulmonary distress. NEUROLOGICAL: Cranial nerves II-XII grossly intact. Motor is 5/5 in bilateral upper and lower extremities proximal to distal. No sensory deficits. HEENT: Face is symmetric. Pupils are equal and reactive. Extraocular movements are intact. NECK: Supple. No JVD. No thyromegaly. No submental, submandibular, pre- /postauricular, occipital or supraclavicular lymphadenopathy. CHEST: Normal chest expansion. No Telemetry. LUNGS: Absence of any rales, rhonchi or any wheezing. CARDIOVASCULAR: Regular. S1 and S2 normal. No appreciable rubs, murmurs or gallops. ABDOMEN: Soft, nontender, and nondistended. There is no rebound, voluntary guarding, or rigidity. : Deferred. No Asher. EXTREMITIES: Non-edematous and not cyanotic. No clubbing. Good capillary refill. SKIN: No skin breakdown. Vital Signs (last 8hr) Date Time Temp Pulse Resp B/P (MAP) Pulse Ox O2 Delivery O2 Flow Rate FiO2 09/13/24 11:30 97.7 69 18 125/86 96 Room Air 09/13/24 09:00 97 Room Air* 0 21 09/13/24 08:12 97.5 75 18 148/85 97 Room Air LABS: Laboratory: Test 09/13/24 11:00 09/13/24 04:23 09/12/24 14:53 09/12/24 14:11 Range/Units Whole Blood Glucose 136 H 70-110 MG/DL White Blood Count 9.5 # 4.8-10.8 K/uL Red Blood Count 5.25 4.50-6.20 MIL/uL Hemoglobin 15.5 14.0-18.0 g/dL Hematocrit 44.9 42-54 % Mean Corpuscular Volume 85.5 79-99 fL Mean Corpuscular Hemoglobin 29.5 27.0-33.0 pg Mean Corpuscular Hemoglobin Concent 34.5 32.0-36.0 g/dL Red Cell Distribution Width 12.4 11.0-15.5 % Platelet Count 241 130-400 K/uL Mean Platelet Volume 9.6 7.5-10.5 fL Nucleated Red Blood Cells 0.0 0.0-0.19 % Sodium Level 135 L 136-145 mmol/L Potassium Level 4.0 3.5-5.1 mmol/L Chloride Level 101 101-111 mmol/L Carbon Dioxide Level 27 21-32 mmol/L Blood Urea Nitrogen 14 7-18 mg/dL Creatinine 0.9 0.5-1.3 mg/dL Glomerular Filtration Rate Calc 100 >90 mL/min Random Glucose 123 H 70-105 mg/dL Total Calcium 8.5 8.5-10.1 mg/dL Total Bilirubin 0.5 0.2-1.0 mg/dL Aspartate Amino Transf (AST/SGOT) 25 10-37 U/L Alanine Aminotransferase (ALT/SGPT) 42 12-78 U/L Alkaline Phosphatase 64 50-136 U/L Total Protein 7.6 6.0-8.3 g/dL Albumin 3.1 L 3.5-5.0 g/dL Magnesium Level 2.10 1.80-2.40 mg/dL Prothrombin Time 10.3 9.6-11.6 SEC Prothromb Time International Ratio <= 0.93 0.85-1.15 Current Medications Medications (Trade) Dose Ordered Sig/Lasha Route PRN Reason Start Time Stop Time Status Last Admin Dose Admin Acetaminophen (TYLenol 325MG TAB) 650 mg Q4H PRN PO MILD PAIN (1-3) 09/11/24 01:00 10/11/24 00:59 Acetaminophen (TYLenol 325MG TAB) 650 mg Q6H PRN PO TEMPERATURE GREATER THAN 101.5 09/11/24 01:00 10/11/24 00:59 09/11/24 12:14 650 MG Ceftriaxone Sodium (ROCEphine 1G INJ) 1 gm BID IVPB 09/11/24 09:00 09/11/24 13:33 DC 09/11/24 08:04 1 GM Dextrose (D50w) 50 ml AD PRN IV HYPOGLYCEMIA PROTOCOL 09/11/24 01:00 10/11/24 00:59 Famotidine (Pepcid 20mg Tab) 20 mg BID PO 09/11/24 09:00 10/11/24 08:59 09/13/24 09:12 20 MG Glucagon (Glucagon 1mg Kit) 1 mg AD PRN IM HYPOGLYCEMIA PROTOCOL 09/11/24 01:00 10/11/24 00:59 Insulin Human Regular (humuLIN R 100 UNIT/ML 3ML) INSULIN SLIDING SCAL... ACHS SQ 09/11/24 07:30 10/11/24 07:29 Lisinopril (Prinivil 20mg) 20 mg DAILY PO 09/12/24 09:00 10/12/24 08:59 09/13/24 09:12 20 MG Magnesium Sulfate 50 ml @ 0 mls/hr PROTOCOL PRN IV OTHER [SEE ORDER COMMENTS] 09/11/24 01:00 10/11/24 00:59 09/11/24 12:10 25 MLS/HR Magnesium Sulfate (Magnesium 4gm Premix 100ml) 4 gm ONCE IV 09/11/24 15:00 09/11/24 13:33 DC Ondansetron HCl (zoFRAN 4MG INJ) 4 mg Q6H PRN IV NAUSEA/VOMITING 09/11/24 01:00 10/11/24 00:59 Piperacillin Sod/ Tazobactam Sod (Zosyn 3.375gm+NS 50ml) 3.375 gm Q8H IV 09/11/24 14:00 09/21/24 13:59 09/13/24 05:17 3.375 GM Potassium Chloride 100 ml @ 100 mls/hr AD PRN IV POTASSIUM PROTOCOL 09/11/24 01:00 10/11/24 00:59 Potassium Chloride (K-Dur/Klor-Con 20meq) 20 meq AD PRN PO POTASSIUM PROTOCOL 09/11/24 01:00 10/11/24 00:59 09/11/24 17:04 20 MEQ Potassium Chloride (KCl 10% Elixir 20meq/15ml) 20 meq AD PRN PO POTASSIUM PROTOCOL 09/11/24 01:00 10/11/24 00:59 Simvastatin (zoCOR) 40 mg HS PO 09/12/24 21:00 10/12/24 20:59 09/12/24 19:48 40 MG Sodium Chloride 1,000 ml @ 100 mls/hr Q10H IV 09/11/24 01:00 09/11/24 12:48 DC 09/11/24 12:22 100 MLS/HR DIAGNOSTICS / RADIOLOGY: [ ] ASSESSMENT: Sepsis due to UTI POA Acute urinary tract infection POA Severe leukocytosis POA Hypertension POA Hyperlipidemia POA Diabetes POA Morbid obesity POA Active alcohol drinker POA Mild protein calorie malnutrition, POA PLAN: We will admit patient in medical surgical Follow up Infectious Disease -Continue Zosyn for empiric coverage -IV antibiotics as outpatient Monitor for signs of alcohol withdrawal and notify primary Continue Famotidine 20 mg p.o. bid for GI prophylaxis Continue on consistent carb and heart healthy diet replace electrolytes as needed per protocol Trend a.m. BMP Continue insulin sliding scale AC & HS with hypoglycemia protocol Trend a.m. CBC DVT prophylaxis with the SCDs only for now Full code Case discussed with patient and nurse at bedside Attention time greater than 30 minutes ARLEN WALTERS IV, MD Sep 13, 2024 14:01
--- NOTE | 2024-09-13 16:13 | PN ---
INFECTIOUS DISEASE PROGRESS NOTE Date of Service: Sep 13, 2024 SUBJECTIVE: This is a 58-year-old male patient who was recently diagnosed with urinary tract infection who presented to the hospital with urinary symptoms, dysuria and frequency. Patient reported having fever and chills and lower back pain. The WBC on admission was 22.7 and patient had a low-grade fever of 99.9. A urinalysis was positive and patient was started on ceftriaxone. Records from recent hospital visit in [place], [place] requested and reviewed. No urine culture result was included in the records. Patient was seen and examined at bedside in room 305. Patient is awake, alert and oriented x 3. Patient's WBC has trended down to a normal value of 9.5. Has remained afebrile for 48 hours. We will consult case management for referral to [facility] for outpatient IV antibiotic with Zosyn x10 days for UTI. A midline has been placed. Patient will be discharged once approved. PHYSICAL EXAM EYES: Anicteric. Pupils equal and reactive. HENT: No oral thrush seen, moist Oral mucosa NECK: Supple, no JVD or thyromegaly. LUNGS: Good air entry. No rales, no rhonchi. CARDIOVASCULAR: S1, S2 regular. No murmur heard. ABDOMEN: Soft, non tender, bowel sounds present, no organomegaly CENTRAL NERVOUS SYSTEM: Awake, alert, oriented x 3. No focal deficits. SKIN: No rashes, no swelling. LYMPHATICS: No peripheral lymphadenopathy MUSCULOSKELETAL: No joint swelling, erythema or tenderness. EXTREMITIES: No cyanosis or clubbing BACK: No deformity, no pressure ulcer. GENITOURINARY: Urinary Frequency and dysuria POA Vital Sign (Last 12 Hours) 09/13/24 09/13/24 09/13/24 09/13/24 08:12 09:00 11:30 16:00 Temp 97.5 97.7 98.1 Pulse 75 69 68 Resp 18 18 18 B/P (MAP) 148/85 125/86 124/78 Pulse Ox 97 97 96 94 O2 Delivery Room Air Room Air* Room Air Room Air O2 Flow Rate 0 FiO2 21 Intake & Output (last 24hrs) 09/12/24 09/12/24 09/13/24 15:00 23:00 07:00 Intake Total 1800 ml Output Total 500 ml Balance 1800 ml -500 ml LABS: Laboratory: Test 09/13/24 14:42 09/13/24 04:23 09/12/24 14:53 09/12/24 14:11 Range/Units Whole Blood Glucose 187 H 70-110 MG/DL White Blood Count 9.5 # 4.8-10.8 K/uL Red Blood Count 5.25 4.50-6.20 MIL/uL Hemoglobin 15.5 14.0-18.0 g/dL Hematocrit 44.9 42-54 % Mean Corpuscular Volume 85.5 79-99 fL Mean Corpuscular Hemoglobin 29.5 27.0-33.0 pg Mean Corpuscular Hemoglobin Concent 34.5 32.0-36.0 g/dL Red Cell Distribution Width 12.4 11.0-15.5 % Platelet Count 241 130-400 K/uL Mean Platelet Volume 9.6 7.5-10.5 fL Nucleated Red Blood Cells 0.0 0.0-0.19 % Sodium Level 135 L 136-145 mmol/L Potassium Level 4.0 3.5-5.1 mmol/L Chloride Level 101 101-111 mmol/L Carbon Dioxide Level 27 21-32 mmol/L Blood Urea Nitrogen 14 7-18 mg/dL Creatinine 0.9 0.5-1.3 mg/dL Glomerular Filtration Rate Calc 100 >90 mL/min Random Glucose 123 H 70-105 mg/dL Total Calcium 8.5 8.5-10.1 mg/dL Total Bilirubin 0.5 0.2-1.0 mg/dL Aspartate Amino Transf (AST/SGOT) 25 10-37 U/L Alanine Aminotransferase (ALT/SGPT) 42 12-78 U/L Alkaline Phosphatase 64 50-136 U/L Total Protein 7.6 6.0-8.3 g/dL Albumin 3.1 L 3.5-5.0 g/dL Magnesium Level 2.10 1.80-2.40 mg/dL Prothrombin Time 10.3 9.6-11.6 SEC Prothromb Time International Ratio <= 0.93 0.85-1.15 ASSESSMENT: Urinary tract infection. Leukocytosis. Diabetes mellitus. PLAN: Continue Zosyn IV. We will follow up on the final urine culture results. Place midline. Patient will need outpatient IV antibiotics for 10 days. Continue pain management. Continue monitoring glucose levels. Case management evaluation for referral to [facility] for outpatient IV antibiotics. This case was reviewed and discussed with my supervising physician and the above assessment and plan was formulated and agreed upon. ATTESTATION BY PHYSICIAN I have seen and examined the patient. I reviewed the documentation, medical decision making, and treatment plan as noted by the mid-level provider above. I agree with the findings and plan of care. CESAR MOSQUERA MD, MIRTA L [facility] Sep 13, 2024 16:13
[2024-09-14 03:52] VITALS: BP 113/95; PULSE 62; RESP 17; TEMP 97.8
[2024-09-14 07:48] VITALS: BP 133/90; PULSE 63; RESP 19; TEMP 97.9
[2024-09-14 09:30] VITALS: O2SAT 96
[2024-09-14 11:27] VITALS: BP 143/89; PULSE 111; RESP 19; TEMP 97.9
--- NOTE | 2024-09-14 11:49 | PN ---
INFECTIOUS DISEASE PROGRESS NOTE Date of Service: Sep 14, 2024 SUBJECTIVE: This is a 58-year-old male patient who was recently diagnosed with urinary tract infection who presented to the hospital with urinary symptoms, dysuria and frequency. Patient reported having fever and chills and lower back pain. The WBC on admission was 22.7 and patient had a low-grade fever of 99.9. A urinalysis was positive and patient was started on ceftriaxone. Records from recent hospital visit in [place], [place] requested and reviewed. No urine culture result was included in the records. Patient was seen and examined at bedside in room 305. Patient is awake, alert and oriented x 3. No growth reported on the blood cultures nor urine cultures x 3 days. Patient has been referred to [facility] for outpatient IV antibiotic with Zosyn x10 days for UTI and pending insurance authorization. Patient will be discharged once approved. PHYSICAL EXAM EYES: Anicteric. Pupils equal and reactive. HENT: No oral thrush seen, moist Oral mucosa NECK: Supple, no JVD or thyromegaly. LUNGS: Good air entry. No rales, no rhonchi. CARDIOVASCULAR: S1, S2 regular. No murmur heard. ABDOMEN: Soft, non tender, bowel sounds present, no organomegaly CENTRAL NERVOUS SYSTEM: Awake, alert, oriented x 3. No focal deficits. SKIN: No rashes, no swelling. LYMPHATICS: No peripheral lymphadenopathy MUSCULOSKELETAL: No joint swelling, erythema or tenderness. EXTREMITIES: No cyanosis or clubbing BACK: No deformity, no pressure ulcer. GENITOURINARY: Urinary Frequency and dysuria POA Vital Sign (Last 12 Hours) 09/14/24 09/14/24 09/14/24 03:52 07:48 11:27 Temp 97.9 97.9 97.9 Pulse 62 63 111 Resp B/P (MAP) 113/95 133/90 143/89 Pulse Ox 97 96 98 O2 Delivery Room Air Room Air Room Air Intake & Output (last 24hrs) 09/13/24 09/13/24 09/14/24 15:00 23:00 07:00 Intake Total 50.0 ml 50.0 ml Balance 50.0 ml 50.0 ml LABS: Laboratory: Test 09/14/24 10:46 09/13/24 04:23 09/12/24 14:53 09/12/24 14:11 Range/Units Whole Blood Glucose 169 H 70-110 MG/DL White Blood Count 9.5 # 4.8-10.8 K/uL Red Blood Count 5.25 4.50-6.20 MIL/uL Hemoglobin 15.5 14.0-18.0 g/dL Hematocrit 44.9 42-54 % Mean Corpuscular Volume 85.5 79-99 fL Mean Corpuscular Hemoglobin 29.5 27.0-33.0 pg Mean Corpuscular Hemoglobin Concent 34.5 32.0-36.0 g/dL Red Cell Distribution Width 12.4 11.0-15.5 % Platelet Count 241 130-400 K/uL Mean Platelet Volume 9.6 7.5-10.5 fL Nucleated Red Blood Cells 0.0 0.0-0.19 % Sodium Level 135 L 136-145 mmol/L Potassium Level 4.0 3.5-5.1 mmol/L Chloride Level 101 101-111 mmol/L Carbon Dioxide Level 27 21-32 mmol/L Blood Urea Nitrogen 14 7-18 mg/dL Creatinine 0.9 0.5-1.3 mg/dL Glomerular Filtration Rate Calc 100 >90 mL/min Random Glucose 123 H 70-105 mg/dL Total Calcium 8.5 8.5-10.1 mg/dL Total Bilirubin 0.5 0.2-1.0 mg/dL Aspartate Amino Transf (AST/SGOT) 25 10-37 U/L Alanine Aminotransferase (ALT/SGPT) 42 12-78 U/L Alkaline Phosphatase 64 50-136 U/L Total Protein 7.6 6.0-8.3 g/dL Albumin 3.1 L 3.5-5.0 g/dL Magnesium Level 2.10 1.80-2.40 mg/dL Prothrombin Time 10.3 9.6-11.6 SEC Prothromb Time International Ratio <= 0.93 0.85-1.15 ASSESSMENT: Urinary tract infection. Leukocytosis. Diabetes mellitus. PLAN: Continue Zosyn IV. Patient will need outpatient IV antibiotics for 10 days. Continue pain management. Continue monitoring glucose levels. Patient has been referred to [facility] for outpatient IV antibiotics and pending insurance approval. This case was reviewed and discussed with my supervising physician and the above assessment and plan was formulated and agreed upon. ATTESTATION BY PHYSICIAN I have seen and examined the patient. I reviewed the documentation, medical decision making, and treatment plan as noted by the mid-level provider above. I agree with the findings and plan of care. CESAR MOSQUERA MD, MIRTA L [facility] Sep 14, 2024 11:49
--- NOTE | 2024-09-14 12:07 | PN ---
[facility] PROGRESS NOTE Date of Service: Sep 14, 2024 Time of Service: 12:06 SUBJECTIVE: Patient was agreed to outpatient antibiotics. Pending approval. Patient has been afebrile. no new complaints or concerns. No acute events reported overnight. Patient remains on IV antibiotics REVIEW OF SYSTEMS CONSTITUTIONAL: Positive fever and chills Denies night sweats. No unintentional weight loss reported. NEUROLOGICAL: Denies headache, amaurosis fugax, motor weakness, sensory deficit, vertigo/spinning sensation, gait abnormalities, or tremors. ENT: No hearing loss, otalgia, otorrhea, rhinitis, rhinorrhea, hoarseness, or sore throat. CARDIOVASCULAR: Denies any exertional angina, dyspnea on exertion, orthopnea, paroxysmal nocturnal dyspnea, palpitations, life-threatening arrhythmias, claudication. PULMONARY: Denies any shortness of breath, cough, phlegm/sputum, hemoptysis, pleuritic chest pain. SLEEP: Denies morning headaches, daytime somnolence or napping. Denies difficul ty falling asleep, staying asleep, waking from sleep. Denies knowledge of snoring. GASTROINTESTINAL: Positive nausea Denies any type of dysphagia to either liquids or solids. Denies vomiting, pyrosis, early satiety, abdominal pain, diarrhea, constipation, or changes in stool consistency or caliber. Denies coffee-ground emesis, hematemesis, hematochezia, or melanotic stools. GENITOURINARY: Complain of burning sensation on urination Denies frequency, ur gency, nocturia, or incontinence (Storage/Irritative symptoms.) Low urinary stream, straining to void, urinary intermittency or hesitancy, splitting of the voiding stream, terminal dribbling. ENDOCRINOLOGIC: Denies polyuria, polydipsia, polyphagia or heat/cold intolerances. HEMATOLOGIC: Denies thrombophilia/previous clots, or coagulopathy/bleeding disorders. ONCOLOGIC: Denies personal history of malignancy. DERMATOLOGIC: Denies rashes or pruritus. PSYCHIATRIC: Denies any suicidal or homicidal ideation. Denies hallucinations. PHYSICAL EXAM GENERAL APPEARANCE: The patient is awake, alert, and oriented, in no acute cardiopulmonary distress. NEUROLOGICAL: Cranial nerves II-XII grossly intact. Motor is 5/5 in bilateral upper and lower extremities proximal to distal. No sensory deficits. HEENT: Face is symmetric. Pupils are equal and reactive. Extraocular movements are intact. NECK: Supple. No JVD. No thyromegaly. No submental, submandibular, pre-/post auricular, occipital or supraclavicular lymphadenopathy. CHEST: Normal chest expansion. No Telemetry. LUNGS: Absence of any rales, rhonchi or any wheezing. CARDIOVASCULAR: Regular. S1 and S2 normal. No appreciable rubs, murmurs or gallops. ABDOMEN: Soft, nontender, and nondistended. There is no rebound, voluntary guarding, or rigidity. : Deferred. No Asher. EXTREMITIES: Non-edematous and not cyanotic. No clubbing. Good capillary refill. SKIN: No skin breakdown. Vital Signs (last 8hr) Date Time Temp Pulse Resp B/P (MAP) Pulse Ox O2 Delivery O2 Flow Rate FiO2 09/14/24 11:27 97.9 111 19 143/89 98 Room Air 09/14/24 07:48 97.9 63 19 133/90 96 Room Air LABS: Laboratory: Test 09/14/24 10:46 09/13/24 04:23 09/12/24 14:53 09/12/24 14:11 Range/Units Whole Blood Glucose 169 H 70-110 MG/DL White Blood Count 9.5 # 4.8-10.8 K/uL Red Blood Count 5.25 4.50-6.20 MIL/uL Hemoglobin 15.5 14.0-18.0 g/dL Hematocrit 44.9 42-54 % Mean Corpuscular Volume 85.5 79-99 fL Mean Corpuscular Hemoglobin 29.5 27.0-33.0 pg Mean Corpuscular Hemoglobin Concent 34.5 32.0-36.0 g/dL Red Cell Distribution Width 12.4 11.0-15.5 % Platelet Count 241 130-400 K/uL Mean Platelet Volume 9.6 7.5-10.5 fL Nucleated Red Blood Cells 0.0 0.0-0.19 % Sodium Level 135 L 136-145 mmol/L Potassium Level 4.0 3.5-5.1 mmol/L Chloride Level 101 101-111 mmol/L Carbon Dioxide Level 27 21-32 mmol/L Blood Urea Nitrogen 14 7-18 mg/dL Creatinine 0.9 0.5-1.3 mg/dL Glomerular Filtration Rate Calc 100 >90 mL/min Random Glucose 123 H 70-105 mg/dL Total Calcium 8.5 8.5-10.1 mg/dL Total Bilirubin 0.5 0.2-1.0 mg/dL Aspartate Amino Transf (AST/SGOT) 25 10-37 U/L Alanine Aminotransferase (ALT/SGPT) 42 12-78 U/L Alkaline Phosphatase 64 50-136 U/L Total Protein 7.6 6.0-8.3 g/dL Albumin 3.1 L 3.5-5.0 g/dL Magnesium Level 2.10 1.80-2.40 mg/dL Prothrombin Time 10.3 9.6-11.6 SEC Prothromb Time International Ratio <= 0.93 0.85-1.15 Current Medications Medications (Trade) Dose Ordered Sig/Lasha Route PRN Reason Start Time Stop Time Status Last Admin Dose Admin Acetaminophen (TYLenol 325MG TAB) 650 mg Q4H PRN PO MILD PAIN (1-3) 09/11/24 01:00 10/11/24 00:59 Acetaminophen (TYLenol 325MG TAB) 650 mg Q6H PRN PO TEMPERATURE GREATER THAN 101.5 09/11/24 01:00 10/11/24 00:59 09/11/24 12:14 650 MG Ceftriaxone Sodium (ROCEphine 1G INJ) 1 gm BID IVPB 09/11/24 09:00 09/11/24 13:33 DC 09/11/24 08:04 1 GM Dextrose (D50w) 50 ml AD PRN IV HYPOGLYCEMIA PROTOCOL 09/11/24 01:00 10/11/24 00:59 Famotidine (Pepcid 20mg Tab) 20 mg BID PO 09/11/24 09:00 10/11/24 08:59 09/14/24 09:41 20 MG Glucagon (Glucagon 1mg Kit) 1 mg AD PRN IM HYPOGLYCEMIA PROTOCOL 09/11/24 01:00 10/11/24 00:59 Insulin Human Regular (humuLIN R 100 UNIT/ML 3ML) INSULIN SLIDING SCAL... ACHS SQ 09/11/24 07:30 10/11/24 07:29 Lisinopril (Prinivil 20mg) 20 mg DAILY PO 09/12/24 09:00 10/12/24 08:59 09/14/24 09:41 20 MG Magnesium Sulfate 50 ml @ 0 mls/hr PROTOCOL PRN IV OTHER [SEE ORDER COMMENTS] 09/11/24 01:00 10/11/24 00:59 09/11/24 12:10 25 MLS/HR Magnesium Sulfate (Magnesium 4gm Premix 100ml) 4 gm ONCE IV 09/11/24 15:00 09/11/24 13:33 DC Ondansetron HCl (zoFRAN 4MG INJ) 4 mg Q6H PRN IV NAUSEA/VOMITING 09/11/24 01:00 10/11/24 00:59 Piperacillin Sod/ Tazobactam Sod (Zosyn 3.375gm+NS 50ml) 3.375 gm Q8H IV 09/11/24 14:00 09/21/24 13:59 09/14/24 05:36 3.375 GM Potassium Chloride 100 ml @ 100 mls/hr AD PRN IV POTASSIUM PROTOCOL 09/11/24 01:00 10/11/24 00:59 Potassium Chloride (K-Dur/Klor-Con 20meq) 20 meq AD PRN PO POTASSIUM PROTOCOL 09/11/24 01:00 10/11/24 00:59 09/11/24 17:04 20 MEQ Potassium Chloride (KCl 10% Elixir 20meq/15ml) 20 meq AD PRN PO POTASSIUM PROTOCOL 09/11/24 01:00 10/11/24 00:59 Simvastatin (zoCOR) 40 mg HS PO 09/12/24 21:00 10/12/24 20:59 09/13/24 22:02 40 MG Sodium Chloride 1,000 ml @ 100 mls/hr Q10H IV 09/11/24 01:00 09/11/24 12:48 DC 09/11/24 12:22 100 MLS/HR DIAGNOSTICS / RADIOLOGY: [ ] ASSESSMENT: Sepsis due to UTI POA Acute urinary tract infection POA Severe leukocytosis POA Hypertension POA Hyperlipidemia POA Diabetes POA Morbid obesity POA Active alcohol drinker POA Mild protein calorie malnutrition, POA PLAN: We will admit patient in medical surgical Follow up with case management and Infectious Disease. Follow up Infectious Disease -Continue Zosyn for empiric coverage -IV antibiotics as outpatient Monitor for signs of alcohol withdrawal and notify primary Continue Famotidine 20 mg p.o. bid for GI prophylaxis Continue on consistent carb and heart healthy diet replace electrolytes as needed per protocol Trend a.m. BMP Continue insulin sliding scale AC & HS with hypoglycemia protocol Trend a.m. CBC DVT prophylaxis with the SCDs only for now Full code Case discussed with patient and nurse at bedside Attention time greater than 30 minutes ARLEN WALTERS IV, MD Sep 14, 2024 12:07
--- NOTE | 2024-09-14 13:00 | NUR ---
Discharge Planning: Pt. accepted at [facility] for O/P IV ABX. Appt. is for tomorrow at 9 am. PCP has been updated by Roseann, patient's nurse. Pending d/c order.
--- NOTE | 2024-09-14 13:32 | DS ---
Discharge Summary Hospital Course Summary: Patient was admitted due to UTI. He was found to have sepsis. He underwent IV fluid resuscitation. Cultures were drawn and IV antibiotics was initiated. No portion because patient has already received antibiotics as outpatient cultures remain negative.. Decision was made to discharge the patient on Zosyn. Medications as per med rec. Patient should follow-up with PCP. Music Educator(s): Infectious Disease: No growth reported on the blood cultures nor urine cultures x 3 days. Patient has been referred to [facility] for outpatient IV antibiotic with Zosyn x10 days for UTI and pending insurance authorization. Patient will be discharged once approved. Assessment/Plan: ASSESSMENT: Sepsis due to UTI POA Acute urinary tract infection POA Severe leukocytosis POA Hypertension POA Hyperlipidemia POA Diabetes POA Morbid obesity POA Active alcohol drinker POA Mild protein calorie malnutrition, POA PLAN: We will admit patient in medical surgical Follow up with case management and Infectious Disease. Follow up Infectious Disease -Continue Zosyn for empiric coverage -IV antibiotics as outpatient Monitor for signs of alcohol withdrawal and notify primary Continue Famotidine 20 mg p.o. bid for GI prophylaxis Continue on consistent carb and heart healthy diet replace electrolytes as needed per protocol Trend a.m. BMP Continue insulin sliding scale AC & HS with hypoglycemia protocol Trend a.m. CBC DVT prophylaxis with the SCDs only for now Full code Case discussed with patient and nurse at bedside Attention time greater than 30 minutes Home Medications: Reported Medications Metformin HCl (Metformin HCl) 500 Mg Tablet, 1 TAB PO TIDMEALS for 30 Days, #60 TAB 0 Refills 09/11/24 Lisinopril (Lisinopril) 20 Mg Tablet, 1 TAB PO DAILY for 30 Days, #30 TAB 0 Refills 09/11/24 Simvastatin (Simvastatin) 40 Mg Tablet, 1 TAB PO HS for 30 Days, #30 TAB 0 Refills 09/11/24 Discontinued Reported Medications Metronidazole (Metronidazole) 500 Mg Tablet, 1 TAB PO Q8H for 10 Days, #14 TAB 0 Refills 09/11/24 Levofloxacin (Levofloxacin) 750 Mg Tablet, 1 TAB PO DAILY for 7 Days, #7 TAB 0 Refills 09/11/24 Amoxicillin/Potassium Clav (Amox Tr-K Clv 875-125 mg Tab) 875 Mg-125 Mg Tablet, 1 TAB PO Q12 for 7 Days, #20 TAB 0 Refills 09/11/24 Discontinued Scripts Bisacodyl (Dulcolax 5Mg Tab) 5 Mg Tablet.dr, 5 MG PO BID for 2 Days, #4 TAB Prov:LILI PAK MD 07/30/22 Time spent arranging discharge: 31-60 minutes ARLEN WALTERS IV, MD Sep 14, 2024 13:32
--- NOTE | 2024-09-14 15:25 | NUR ---
DC NOTE DC INSTRUCTIONS, FOLLOW UP APPOINTMENT WITH [facility] AND DIRECTIONS ALONG WITH PRINTED PRESCRIPTIONS GIVEN TO PT, VERBALIZED UNDERSTANDING. MIDLINE TO RIGHT UPPER ARM DRY AND INTACT, INSTRUCTIONS TO KEEP DRESSING FROM GETTING WET WHEN IN SHOWER. PT WALKED DOWNSTAIRS, REFUSED WHEELCHAIR PT STATED HE WANTED TO AMBULATE TO VEHICLE INTO VIA PRIVATE CAR. NO FURTHER COMMENTS OR CONCERNS AT THIS TIME.
== END 2024-09-14 15:47 | disposition home or self-care (01) | DRG 872 ==
LOC: EDH 21:04 → EDHIP 09-11 00:45 → 3BH 09-11 01:56
PROVIDERS: ADMIT Internal Medicine; ATTEND Internal Medicine
DX: A41.9 Sepsis, unspecified organism (principal); E44.1 Mild protein-calorie malnutrition; I10 Essential (primary) hypertension; N30.91 Cystitis, unspecified with hematuria; E78.00 Pure hypercholesterolemia, unspecified; E11.9 Type 2 diabetes mellitus without complications; E66.01 Morbid (severe) obesity due to excess calories; Z83.3 Family history of diabetes mellitus; Z68.32 Body mass index [BMI] 32.0-32.9, adult
CPT/HCPCS: 36415; 74177; 80048; 80053; 81001; 82948; 83605; 83735; 84145; 84484; 85025; 85027; 85610; 87040; 87086; 93005; 96374; 99285; G0378; J0696; J1815; J2543; J3475; J7030; Q9967